=== PATIENT | female | born 1970 | race African-American/Black ===

== ENCOUNTER 2024-12-23 12:58 | Outpatient (AMB) | payer MEDICARE, MEDICAID, SELFPAY ==
--- NOTE | 2024-12-23 13:17 | MHC.OFFVIS ---
Vital Signs 12/23/24 13:22 Height 5 ft 6 in Weight 224 lb BMI 36.2 BP 112/82 Blood Pressure Location Rt brachial Position Sitting Intake Visit Reasons: ENP: Seizures ? TIA Intake Note: Patient referred by divya for seizures? TIA Allergies aspirin Allergy (Mild, Verified 12/23/24 13:19) Gastrointestinal Upset benazepril Allergy (Mild, Verified 12/23/24 13:19) Cough chlorthalidone Allergy (Mild, Verified 12/23/24 13:19) Muscle cramps ibuprofen Allergy (Mild, Verified 12/23/24 13:19) Gastrointestinal Upset naproxen Allergy (Mild, Verified 12/23/24 13:19) Gastrointestinal Upset propofol Allergy (Mild, Verified 12/23/24 13:19) Seizure Medication List - Last Reconciled 12/23/24 by Esmer Knapp MD albuterol sulfate 90 mcg/actuation (Ventolin HFA) 1 inh inhalation QID amlodipine 5 mg PO DAILY aripiprazole (Abilify) 2 mg PO DAILY ascorbate calcium (vitamin C) 1 g PO Q6H betamethasone valerate 0.1% 1 appl topical DAILY bisacodyl (Dulcolax (bisacodyl)) 5 mg PO BEDTIME budesonide (Pulmicort) 0.25 mg inhalation BID cariprazine (Vraylar) 1.5 mg PO DAILY cholecalciferol (vitamin D3) 50 mcg PO DAILY clopidogrel (Plavix) 75 mg PO DAILY cyclobenzaprine 5 mg PO BEDTIME dextromethorphan HBr 30 mg PO Q8H diazepam 2 mg PO TID PRN dicyclomine 10 mg PO QID fluticasone propionate 50 mcg/actuation (Allergy Relief (fluticasone)) 1 spray intranasal BID fluvoxamine 25 mg PO BEDTIME fluvoxamine 100 mg PO BID fremanezumab-vfrm (Ajovy) 675 mg subcut [id number] gabapentin 600 mg PO BID galcanezumab-gnlm (Emgality Pen) mg subcut hydrocortisone 1% (Anti-Itch (hydrocortisone)) 1 appl topical BID hydroxyzine HCl 10 mg PO BEDTIME ketotifen fumarate 0.025%(0.035%) (Allergy Eye (ketotifen)) 1 drp ophthalmic (eye) BID lacosamide 200 mg PO BID levalbuterol HCl 0.63 mg inhalation TID levocetirizine (Xyzal) 5 mg PO DAILY levothyroxine 125 mcg PO DAILY lorazepam (Ativan) 0.5 mg PO BEDTIME PRN lurasidone 20 mg PO DAILY melatonin mg PO montelukast (Singulair) 10 mg PO DAILY naphazoline-pheniramine 0.025-0.3 % (Naphcon-A) 1 drp ophthalmic (eye) BID-QID PRN nystatin 1 appl topical DAILY paroxetine HCl (Paxil) 30 mg PO DAILY polymyxin B sulf-trimethoprim drps ophthalmic (eye) prazosin 2 mg PO BEDTIME rabeprazole (AcipHex) 20 mg PO DAILY revefenacin (Yupelri) 175 mcg inhalation DAILY rhubarb root extract (Estroven Complete Menopause Relief) mg PO roflumilast (Daliresp) 500 mcg PO DAILY simvastatin 20 mg PO DAILY sodium hyaluronate (viscosup) (Euflexxa) 20 mg intra-articular QWEEK sucralfate (Carafate) 5 mL PO QID tiotropium-olodaterol 2.5-2.5 mcg/actuation (Stiolto Respimat) 2 puffs inhalation DAILY topiramate (Topamax) 25 mg PO DAILY topiramate (Topamax) 100 mg PO BID HPI Comments Details: 54y/o female with h/o Polysubstance abuse,seizure ( 2004 CVA ) anxiety , depression bipolar , left 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 In 2022 she was in [place] ER for right facial droop , weakness, tremors , headaches. Her imaging studies ruled out CVA . SHe was seeing Dr. Echeverria and wants to switch to here. she also has sleep apnea but unable to use cPAP and is on Zepbound now. She started having seizures in 2004 - after her CVA. Her last episode was 3-4 months ago- generalized shaking and loses consciousness.she does not remember more history she is on topiramate 100mg bid gabapentin 600mg bid She also has chronic headaches and is on emgality or ajovy .The headaches are frontal, with light noise sensitivty , nausea . she is doing good with emgality. [facility] Medical History (Updated 12/23/24 @ 13:45 by Esmer Knapp MD) Chronic migraine without aura Obstructive sleep apnea of adult Hx of seizure disorder Essential hypertension Hypothyroidism Seizure CVA (cerebral vascular accident) Bipolar disorder Anxiety Depression Asthma COPD (chronic obstructive pulmonary disease) Gastritis Cocaine use disorder History of suicidal ideation Anemia Vitamin D deficiency Torn meniscus Osteoarthritis TIMBO (obstructive sleep apnea) Upper GI bleed Lumbar spondylolysis Cervical spondylosis Fibromyalgia Carpal tunnel syndrome, bilateral Morbid obesity OAB (overactive bladder) Nocturnal hypoxemia Osteoarthritis of both knees Kienbock's disease Mixed hyperlipidemia Surgical History H/O endoscopy H/O arthroscopy of knee H/O hernia repair H/O total hysterectomy with bilateral salpingo-oophorectomy (BSO) Hx of colonoscopy History of carpal tunnel release Family History Mother Stroke Father Benign hypertension Arthritis Social History Alcohol intake: never Patient Tobacco Use Status: Former Tobacco user Physical Exam Vital Signs: Last Vital Signs BP 112/82 12/23/24 13:22 BMI result Body Mass Index 36.2 Const General: cooperative and comfortable Nutritional Appearance: obese Orientation/consciousness: patient oriented x3 Eyes Pupils: Equal, round and reactive pupils present Neuro Other: Mild Left facial droop ANtalgic gait Mild left UE weakness Mallampatti grade 4 General: patient oriented x3, tone normal and moves all extremities Cranial nerves: Yes Facial sensation intact/muscles of mastication intact, Yes Equal, round and reactive pupils present, Yes Bilaterally intact EOM present, Yes Nystagmus not present, Yes Normal facial strength present, Yes Midline tongue present, Yes Symmetric palate elevation present and Yes Ability to bilaterally elevate shoulders present Cognition (Neuro): normal cognition Gait exam (Neuro): Antalgic gait present Motor exam (neuro): 5/5 motor strength present throughout Deep tendon reflexes (DTR's): Right triceps reflex intensity grade: 1+, Left triceps reflex intensity grade: 2+, Rt Biceps (C5, C6): 1+, Left biceps reflex intensity grade: 2+, Right brachioradialis reflex intensity grade: 1+, Left brachioradialis reflex intensity grade: 2+, Right patellar reflex intensity grade: 1+ and Left patellar reflex intensity grade: 2+ Coordination: [id number] test normal Assessment & Plan Assessment & Plan (1) Seizure: Code(s): R56.9 - Unspecified convulsions Category: Medical (2) Obstructive sleep apnea of adult: Code(s): G47.33 - Obstructive sleep apnea (adult) (pediatric) Category: Medical (3) Chronic migraine without aura: Code(s): G43.709 - Chronic migraine without aura, not intractable, without status migrainosus Category: Medical Qualifiers: Status migrainosus presence: without status migrainosus Intractability: not intractable Qualified Code(s): G43.709 - Chronic migraine without aura, not intractable, without status migrainosus Plan Reports from for review. continue AJOVY q monthly Topiramate 100mg bid gabapentin 600mg bid AVOID driving Coding Level of Care Code New Pt Level 4 (69634) Complex EM visit Add On G2211 Diagnoses Seizure R56.9 Obstructive sleep apnea of adult G47.33 Chronic migraine without aura without status migrainosus, not intractable G43.709 Status migrainosus presence: without status migrainosus Intractability: not intractable
[2024-12-23 13:22] VITALS: BP 112/82; BMI 36.2
--- OUTSIDE RECORDS SUMMARY | 2024-12-23 15:23 | XMS_ITS | Encounter Summary ---
Author Organization [facility] Address [address] [address] Care Team Providers Care [facility] Experience Strategy Name Role Phone Unavailable Primary Care Provider Unavailabl e Encounter Details Date Type Department Care Team (Late Contact Info) Description 12/08/2024 Dental Interim Note [facility] [address] [place] [address] Jody Auguste DDS [address] [place] [address] Social History Tobacco Use Types Packs/Day Years Used Date Smoking Tobacco: Former Cigarettes Smokeless Tobacco: Never Social Connections Answer Date Recorded Connectedness 0 06/21/2024 Financial Resource Strain Answer Date R ecorded Financial Resource Strain 0 2021 Stress Answer Date Recorded Stress 0 01/18/2022 Physical Activity Answer Date Recorded Physical Activity 0 01/18/2022 Food Insecurity Answer Date Recorded Food 0 07/01/2024 Transportation Needs Answer Date Record ed Transportation 0 01/18/2022 Housing Stability Answer Date Recorded Housing 0 01/18/2022 Safety and Environment Answer Date Patrice rded Safety 0 01/18/2022 Utilities Answer Date Recorded Utilities 0 01/18/2022 Employment Answer Date Recorded Stress 0 06/21/2024 Comments Unknown Sex and Gender Information Value Date Recorded Sex Assigned at Not on file Legal Sex Female 7:15 AM PST Gender Identity Not on file Sexual Orientation Not on file documented as of this encounter Plan of Treatment Upcoming Encounters Date Type Department Care Team (Late st Contact Info) Description 01/10/2025 1:00 PM EDT Office Visit [facility] [address] [place] [address] Sahil Crews DMD [address] [place] [address] documented as of this encounter Visit Diagnoses Not on filedocumented in this encounter
--- OUTSIDE RECORDS SUMMARY | 2024-12-23 15:23 | XMS_ITS | Clinical Summary ---
Author Organization [facility] [address] [place] [address] [place] [phone] Phone Care Team Providers Care Administrative Assistant Front Desk Name Role Phone Goldie Stark MD Primary Care Provider [phone] Allergies Active Allergy Reactions Criticality Noted Date Comments Aspirin GI intolerance 01/01/2017 Benazepril Cough 08/31/2019 Chlorthalidone Other 08/13/2019 Muscle spasm Ibuprofen GI intolerance 09/13/2021 Naproxen GI intolerance 09/13/2021 Propofol 08/19/2017 seizures Medications multivit-min/iro n/folic acid/K (ADULTS MULTIVITAMIN ORAL) Take 1 tablet by mouth 1 (one) time each day. 06/03/20 23 Active levothyroxine (SYNTHROID, LEVOTHROID) 112 mcg tablet Take 1 tablet (112 mcg total) by mouth 1 (one) time each day. 07/29/20 23 Active cholecalciferol (VITAMIN D-3) 50 mcg (2,000 unit) tablet Take 1 tablet (2,000 Units total) by mouth 1 (one) time each day. 03/31/20 24 Active fluconazole (DIFLUCAN) 150 mg tablet Take 1 tablet (150 mg total) by mouth every 3rd (third) day. 03/24/20 24 Active loratadine (CLARITIN) 10 mg tablet Take 1 tablet (10 mg total) by mouth 1 (one) time each day. 03/15/20 24 Active nystatin (MYCOSTATIN) 100,000 unit/mL suspension Take 1 mL by mouth 4 times daily for 10 days. 09/09/20 Active diclofenac (VOLTAREN) 1 % topical gel Apply 1 Dose topically 1 (one) time each day. 07/28/20 Active levalbuterol (XOPENEX) 0.63 mg/3 mL nebulizer solution Inhale 3 mL by mouth if needed. 03/26/20 Active fluvoxaMINE (LUVOX) 100 mg tablet Take 1 tablet (100 mg total) by mouth at bedtime. 05/20/20 Active hydrocortisone 2.5 % cream Apply 1 Dose topically 1 (one) time each day. 05/04/20 Active gabapentin (NEURONTIN) 300 mg capsule Take 1 capsule (300 mg total) by mouth 2 (two) times a day. 05/27/20 Active bisacodyL (DULCOLAX) 5 mg EC tablet Take 1 tablet (5 mg total) by mouth 1 (one) time each day if needed. 04/13/20 Active fluticasone propionate (FLONASE) 50 mcg/actuation nasal spray Administer 1 spray into affected nostril(s) 1 (one) time each day. 03/25/20 Active docusate sodium (COLACE) 100 mg capsule Take 1 capsule (100 mg total) by mouth 2 (two) times a day if needed for constipation. 03/25/20 Active PARoxetine (PAXIL) 30 mg tablet Take 1 tablet (30 mg total) by mouth 1 (one) time each day in the morning. 03/25/20 Active dicyclomine (BENTYL) 10 mg capsule Take 1 capsule (10 mg total) by mouth 4 (four) times a day if needed (bowel pain). 02/19/20 Active ipratropium-albu teroL (DUONEB) 0.5-2.5 mg/3 mL nebulizer solution Inhale 3 mL by mouth 4 (four) times a day. 02/19/20 Active multivitamin tablet TAKE 1 TABLET BY MOUTH EVERY DAY 90 tablet 1 09/22/20 Active albuterol 2.5 mg /3 mL (0.083 %) nebulizer solutionIndicati ons:Mild intermittent asthma without complication Take 3 mL (2.5 mg total) by nebulization every 6 (six) hours if needed for wheezing. 75 mL 2 01/08/20 25 Active RABEprazole (ACIPHEX) 20 mg EC tablet TAKE 1 TABLET BY MOUTH DAILY 30 tablet 2 10/20/19 25 Active clopidogreL (PLAVIX) 75 mg tablet TAKE 1 TABLET BY MOUTH DAILY 90 tablet 2 10/20/19 25 Active amLODIPine (NORVASC) 5 mg tablet Take 1 tablet (5 mg total) by mouth 1 (one) time each day. 30 tablet 3 10/30/19 25 Active simvastatin (ZOCOR) 20 mg tablet TAKE 1 TABLET BY MOUTH AT BEDTIME 90 tablet 1 11/23/19 25 Active tirzepatide, weight loss, (Zepbound) 2.5 mg/0.5 mL solutionIndicati ons:TIMBO (obstructive sleep apnea) Inject 2.5 mg under the skin every 7 (seven) days. 2 mL 11/25/19 25 Active tirzepatide, weight loss, (Zepbound) 5 mg/0.5 mL solution Inject 5 mg under the skin every 7 (seven) days. 2 mL 3 12/14/19 25 Active tirzepatide, weight loss, (Zepbound) 2.5 mg/0.5 mL solutionIndicati ons:TIMBO (obstructive sleep apnea) Inject 2.5 mg under the skin every 7 (seven) days. 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 Solifenacin 5 mg trialed. As of 02/19/2021 she states she is no longer taking this and her bladder is fine. Carpal tunnel syndrome on both sides 01/17/2019 Overview (07/18/2024): 01/22 EMG: moderate to severe bilateral CTS 11/26: Left carpal tunnel release Fibromyalgia 11/25/2018 Cervical spondylosis 02/05/2018 Lumbar spondylosis 02/05/2018 Vitamin D deficiency 02/19/2017 Gastritis 02/19/2017 Overview (07/18/2024): EGD 04/10/15- loose fundoplication, large HH, Lane erosions TIMBO (obstructive sleep apnea) 02/19/2017 Overview (07/18/2024): [facility] [place] Home Sleep Apnea Test: Date 07/27/2020; Wt 311#; BMI 46; AMA (AHI) 51, Obstructive apneas 48; Mixed apneas 0; Central apneas 0; hypopneas 202; average oxygen saturation 90% (lowest 62% with saturations <88% for 5% or more of study) - Obstructive Sleep Apnea - severe; mostly hypopneas with obstructive apneas; with sleep related hypoventilation by 2019 home sleep apnea test. Cocaine use disorder, moderate, in sustained rem ission 02/19/2017 Overview (07/18/2024): Crack cocaine use 11/02/15 - in patient Psych admit Osteoarthritis, multiple sites 02/19/2017 Overview (07/18/2024): Knees, hands, lumbar spine. Left knee DJD mod-severe on CT 2014 ([facility]) Torn meniscus 02/19/2017 Overview (07/18/2024): l knee. Hemiparesis as late effect o f cerebrovascular accident (CVA) 01/01/2017 Overview (07/18/2024): CVA 2004. Residual L sided weakness. Crack cocaine use, resulting in CVA Essential hypertension 01/01/2017 Hypothyroidism 01/01/2017 IBS (irritable bowel syndrome) 01/01/2017 COPD (chronic obstructive pulmonary disease) Bipolar disorder 01/01/2017 Depression 01/01/2017 Anxiety 01/01/2017 Asthma 01/01/2017 Encounters Date Type Department Care Team Description 12/21/2024 1:45 PM EDT Clinical Support Internal Medicine - [address] [place] [phone] Need for prophylactic vaccination with [id number] (MMR) vaccine (Primary Dx) 12/16/2024 12:59 PM EDT - 12/16/2024 11:59 PM EDT Hospital [facility] [address] [phone] Breast cancer screening by mammogram Discharge Disposition: Home or Self Care 12/10/2024 Telephone Internal Medicine [facility] [address] [phone] Goldie Stark MD [place]: Medication 12/01/2024 8:42 AM EST - 12/01/2024 11:59 PM EST Hospital Encounter [facility] [address] [place] [phone] Nonintractable epilepsy without status epilepticus, unspecified epilepsy type (CMS/HCC) (Primary Dx) Discharge Disposition: Home or Self Care 11/30/2024 8:55 AM EST - 11/30/2024 11:59 PM EST Hospital Encounter [facility] [address] [place] [phone] Discharge Disposition: Home or Self Care 11/29/2024 7:43 AM EST - 11/29/2024 11:59 PM EST Hospital Encounter [facility] [address] [place] [phone] Discharge Disposition: Home or Self Care 11/24/2024 Telephone Internal Medicine [address] [phone] Goldie Stark MD [place]: Medication 11/05/2024 Telephone Internal Medicine [address] [phone] [facility] ([place] [facility] 10/27/2024 Telephone Internal Medicine [address] [phone] Goldie Stark MD Prior Authorization 10/22/2024 Telephone Internal Medicine [address] [phone] Goldie Stark MD [place]: Lab Results 10/19/2024 8:15 AM EST Office Visit Internal Medicine [address] [phone] Goldie Stark MD Prediabetes (Primary Dx); TIMBO (obstructive sleep apnea); Hypothyroidism due to acquired atrophy of thyroid; Mixed hyperlipidemia; Essential hypertension; Screening for colorectal cancer; Breast cancer screening by mammogram 10/19/2024 Telephone Gastroenterology [address] [phone] Mikala Sylvester MD special procedure 10/13/2024 Telephone Internal Medicine [address] [phone] Goldie Stark MD [place] - New Medication 10/12/2024 11:30 AM EST Consult Endocrinology [address] [phone] Chapo Reyna MD Hypothyroidism, unspecified type (Primary Dx) 09/27/2024 Telephone Internal Medicine [address] [phone] Goldie Stark MD from Last 3 Months Immunizations Name Administration Dates Next Due Influenza Quadravalent, MDCK , 0.5ml, preservative free (Flucelvax) 6mo and older 07/10/2021 Influenza trivalent, 0.5mL, preservative free (Fluarix; FluLaval; Fluzone) ages 6mo and older (Afluria) 3 years and older 09/03/2017 Influenza trivalent, with pr eservative (Fluzone; Afluria) 6mo and older 07/01/2020,08/03/2018,08/19/2015,06/29 Influenza, live, intranasal, quadrivalent (FluMist) 2yo to less than 50yo 06/13/2022 MMR, measles mumps and rubel la Live (Priorix; M-M-R II) 12mo and older 12/21/2024 Pfizer SARS-CoV-2 COVID-19, mRNA, LNP-S, preservative free 07/26/2021,01/10/2021,12/20/2020 Pneumococcal polysaccharide 23 valent (Pneumovax 23) 2yo and older 09/24/2017 Tdap Tetanus diptheria acell ular pertussis (Boostrix; Adacel) 7yo and older 09/24/2017 Zoster recombinant (Shingrix ) 19yo and older 07/01/2020,04/26/2020 Surgical History Surgery Date Site/Laterality Comments OTHER SURGICAL HISTORY 05/15/2015 PROCEDURE: HISTORY OTHER; COMMENT: Cara Fundoplication MULTIPLE TOOTH EXTRACTIONS 08/16/2014 PROCEDURE: HISTORICAL DENTAL EXTRACTION OTHER SURGICAL HISTORY 05/15/2015 PROCEDURE: HISTORY OTHER; COMMENT: Hiatus hernia CHOLECYSTECTOMY 1995 PROCEDURE: HISTORICAL CHOLECYSTECTOMY UPPER GASTROINTESTINAL ENDOSCOPY 04/10/15 PROCEDURE: UPPER GI ENDOSCOPY/EXAM; COMMENT: loose fundoplication,Lane erosion COLONOSCOPY 03/12/2013 PROCEDURE: HISTORICAL COLONOSCOPY HYSTERECTOMY 12/08/2017 PROCEDURE: HISTORICAL TOTAL HYSTERECTOMY WITH BSO KNEE ARTHROSCOPY W/ MENISCAL REPAIR -1987 Left PROCEDURE: KS ARTHROSCOPY KNEE W/MENISCUS RPR MEDIAL/LATERAL UPPER GASTROINTESTINAL ENDOSCOPY 12/14/2018 PROCEDURE: UPPER GI ENDOSCOPY/EXAM; COMMENT: Dr. Henriquez; esophageal ulceration CARPAL TUNNEL RELEASE 11/27/2020 Left PROCEDURE: HISTORICAL CARPAL TUNNEL REL; COMMENT: Dr. Tapia - [facility] STEREOTACTIC CORE BIOPSY Right Medical History Medical History Date Comments COPD (chronic obstructive pu lmonary disease) ([facility]) 01/01/2017 DX:COPD (chronic obstructive pulmonary disease) ([facility]) Asthma 01/01/2017 DX:Asthma Depression 01/01/2017 DX:Depression Anxiety 01/01/2017 DX:Anxiety Bipolar disorder 01/01/2017 DX:Bipolar diso rder ([facility]) IBS (irritable bowel syndrome) 01/01/2017 D X:IBS (irritable bowel syndrome) CVA (cerebral vascular accid ent) ([facility]) 01/01/2017 DX:CVA (cerebral vascular ac cident) ([facility]) History of seizure 01/01/2017 DX:History of seizure Left knee pain 01/01/2017 DX:Left knee oh n Osteoarthritis, multiple sites 02/19/2017 D X:Osteoarthritis, multiple sites Vitamin D deficiency 02/19/2017 DX:Vitamin D deficiency History of anemia 02/19/2017 DX:History of anemia; COMMENT: 04/29/09- requiring transfusion-4 units History of suicidal ideation 02/19/2017 DX: History of suicidal ideation; COMMENT: 11/03/15 SI in setting of crack cocaine use. H/O: substance abuse 02/19/2017 DX:H/O: sub stance abuse ([facility]); COMMENT: Crack cocaine use 11/02/15 - in patient Psych admit Essential hypertension 01/01/2017 DX:Essent ial hypertension Gastritis 02/19/2017 DX:Gastritis; CO MMENT: EGD 04/10/15- loose fundoplication, large HH, Lane erosions H/O: upper GI bleed 02/19/2017 DX:H/O: uppe r GI bleed; COMMENT: 03/11/13 [facility] Admit. Transfused 2 units Hemiparesis as late effect o f cerebrovascular accident (CVA) ([facility]) 01/01/2017 DX:Hemiparesis as late effec t of cerebrovascular accident (CVA) ([facility]); COMMENT: CVA 2004. Residual L sided weakness. Crack cocaine use, resulting in CVA Hypothyroidism 01/01/2017 DX:Hypothyroidis m TIMBO (obstructive sleep apnea) 02/19/2017 DX :TIMBO (obstructive sleep apnea); COMMENT: Does not tolerate CPAP Restless legs syndrome (RLS) 02/19/2017 DX: Restless legs syndrome (RLS) Torn meniscus 02/19/2017 DX:Torn meniscus ; COMMENT: R knee. Morbid obesity with body mas s index (BMI) of 45.0 to 49.9 in adult ([facility]) 02/19/2017 DX:Morbid obesity with body mass index (BMI) of 45.0 to 49.9 in adult ([facility]) Carpal tunnel syndrome on both sides 01/17/2019 DX:Carpal tunnel syndrome on both sides; COMMENT: 01/22 EMG: moderate to severe bilateral CTS Family History Medical History Relation Name Comments Arthritis Father Hypertension Father Cardiac problem s Stroke Mother Breast cancer Mother's Sister Breast cancer Other Relation Name Status Comments Aunt mat aunt Alive Father Mother Mother's Sister Alive Other Social History Tobacco Use Types Packs/Day Years Used Date Smoking Tobacco: Former Cigarettes Q uit: 11/02/2015 Smokeless Tobacco: Never Tobacco Cessation:Counseling Given: Not Answered Alcohol Use Standard Drinks/Week Comments No 0 (1 standard drink = 0.6 oz pur e alcohol) Comments No Sex and Gender Information Value Date Recorded Sex Assigned at Female 10/21/2024 1:18 PM EST Legal Sex Female 10:43 PM EST Gender Identity Female 10/21/2024 1:18 PM EST Sexual Orientation Choose not to disclose 2024 1:18 PM EST Obstetrics History Para Term AB IAB SAB Ectopic Multiple Livin g Live Births 3 Last Filed Vital Signs Vital Sign Reading Time Taken Comments Blood Pressure 116/88 10/19/2024 8:23 AM EST Pulse 94 10/19/2024 8:23 AM EST Temperature 36.6 ??C (97.8 ??F) 10/19/2024 8:23 AM ES T Respiratory Rate - - Oxygen Saturation 98% 10/19/2024 8:23 AM EST Inhaled Oxygen Concentration - - Weight 104 kg (230 lb) 12/16/2024 1:11 PM EDT Height 167.6 cm (5' 6 ) 12/16/2024 1:11 PM EDT Body Mass Index 37.12 12/16/2024 1:11 PM EDT Plan of Treatment Upcoming Encounters Date Type Department Care Team (Late st Contact Info) Description 01/12/2025 1:15 PM EDT Office Visit Endocrinology [address] [phone] Chapo Reyna MD [address] [place] [phone] 03/01/2025 2:00 PM EDT Office Visit Internal Medicine - [place] [address] [phone] Goldie Stark MD [address] [phone] Health Maintenance Due Date Last Done Comments Hepatitis A Vaccines (1 of 2 - Risk 2-dose series) 01/02/1987 Hepatitis B Vaccines (1 of 3 - 19+ 3-dose series) 01/02/1987 Cervical Cancer Screening: Pap Smear 01/02/1989 Pneumococcal Vaccine: 50+ Years (2 of 2 - PCV) 09/24/2018 09/24/2017 Pneumococcal Vaccine: Pediatrics (0 to 5 Years) and At-Risk Patients (6 to 64 Years) (2 of 2 - PCV) 09/24/2018 09/24/2017 Colorectal Cancer Screening: Colonoscopy 09/08/2022 Depression Screening 09/08/2022 HIV Screening 09/08/2022 Hepatitis C Screening 09/08/2022 Medicare Annual Wellness Visit 09/08/2022 Social Influencers of Health Screening 09/08/2022 Hypertension/CHF/CAD Annual BMP Blood Test 06/16/2025 06/16/2024, 06/16/2024 Breast Cancer Screening 12/16/2026 12/16/2024, 09/06 DTaP,Tdap,and Td Vaccines (2 - Td or Tdap) 09/24/2027 09/24/2017 Cholesterol Screening (Lipid Panel) 05/06/2028 05/06/2023 Zoster Vaccines Completed 07/01/2020, 04/26/2020 COVID-19 Vaccine Completed 06/03/2024, 05/2022, 01/28/2022, Additional history exists Influenza Vaccine Completed 06/03/2024, , 06/13/2022, Additional history exists MMR Vaccines Aged Out 12/21/2024 No longer eligi ble based on patient's age to complete this topic HIB Vaccines Aged Out No longer eligi ble based on patient's age to complete this topic HPV Vaccines Aged Out No longer eligi ble based on patient's age to complete this topic IPV Vaccines Aged Out No longer eligi ble based on patient's age to complete this topic Meningococcal ACWY Vaccine Aged Out N o longer eligible based on patient's age to complete this topic Meningococcal B Vacine Aged Out No lo nger eligible based on patient's age to complete this topic RSV Immunization Patients Under 20 months Aged Out No longer eligible based on patient's age to complete this topic Varicella Vaccines Aged Out No longer eligible based on patient's age to complete this topic Procedures Procedure Name Priority Date/Time Associated Diagnosis Comments MG MAMMO DIGITAL SCREENING W JAREN BILAT Routine 12/16/2024 1:18 PM EDT Breast cancer screening by mammogram CONTINUOUS EEG Routine 11/30/2024 9:30 AM EST Epilepsy, unspecified, not intractable, without status epilepticus (CMS/HCC) HEMOGLOBIN A1C Routine 10/19/2024 9:03 AM EST Prediabetes THYROXINE FREE Routine 10/19/2024 9:03 AM EST Hypothyroidism, unspecified type THYROID STIMULATING HORMONE Routine 10/19/2024 9:03 AM EST Hypothyroidism, unspecified type HM ANNUAL BMP BLOOD TEST Routine 06/16/2024 LIPID PANEL Routine 05/06/2023 from Last 3 Months or Most Recently Relevant to Health Maintenance Results * MG Mammo Digital Screening w Jaren bilat (12/16/2024 1:18 PM EDT) Anatomical Region Laterality Modality Breast Bilateral Mammography 12/16/2024 4:22 PM EDT Addenda Addendum by Dariusz Maria MD on 12/17/2024 8:53 AM EDT Since the original dictation of this report, a previous outside study performed 09/06/2021 has become available. ??This demonstrates that the density in the upper-outer quadrant of the right breast seen on the prior study has completely resolved. ??A tissue marker is now seen here. ??This indicates that the density seen on the previous study represents postbiopsy hemorrhage which has since resolved. ??No information regarding the results of this biopsy is currently available. -------- ADDENDUM -------- Dictated By: Dariusz Maria Dictated Date: 12/17/2024 08:51 ET Assigned Physician: Dariusz Maria Reviewed and Electronically Signed By: Dariusz Maria Signed Date: 12/17/2024 08:53 ET Workstation ID: [id number] Transcribed By: Self Edit Transcribed Date: 12/17/2024 08:51 ET Impressions 12/16/2024 4:30 PM EDT No mammographic evidence of malignancy. ?? A negative mammogram in the presence of a clinically suspicious palpable abnormality does not preclude the possibility of malignancy or alter the indications for biopsy. ASSESSMENT: ?? BI-RADS 1: NEGATIVE RECOMMENDATION(S): 1: Routine screening mammogram BILATERAL in 1 year. [facility] location[facility] [address], [id number] -------- FINAL REPORT -------- Dictated By: Solitario Wade Dictated Date: 12/16/2024 16:22 ET Assigned Physician: Solitario Wade Reviewed and Electronically Signed By: Solitario Wade Signed Date: 12/16/2024 16:30 ET Workstation ID: [id number] Transcribed By: Self Edit Transcribed Date: 12/16/2024 16:22 ET Narrative 12/16/2024 4:30 PM EDT EXAM: ??SCREENING MAMMOGRAPHY, BILATERAL HISTORY: ??SCREENING. ??Maternal aunt with history of breast cancer. COMPARISON: ??None available TECHNIQUE: Synthesized CC and MLO projections of each breast. ??Tomosynthesis of each breast in the CC and MLO projections. ADDITIONAL IMAGING: None Computer-aided detection was employed with the iCAD ??ProFound AI 3-D. TISSUE DENSITY: The breasts are almost entirely fatty. (BI-RADS ??Category A) FINDINGS: RIGHT BREAST: No suspicious mass. No suspicious calcification. No distortion. ?? No additional suspicious right breast findings LEFT BREAST: No suspicious mass. No suspicious calcification. No distortion. ?? No additional suspicious left breast findings Procedure Note Solitario Wade MD / Dariusz Maria MD - 12/16/2024 EXAM: SCREENING MAMMOGRAPHY, BILATERAL HISTORY: SCREENING. Maternal aunt with history of breast cancer. COMPARISON: None available TECHNIQUE: Synthesized CC and MLO projections of each breast.Tomosynthesis of each breast in the CC and MLO projections. ADDITIONAL IMAGING: None Computer-aided detection was employed with the iCAD ProFound AI 3-D. TISSUE DENSITY: The breasts are almost entirely fatty. (BI-RADS CategoryA) FINDINGS: RIGHT BREAST: No suspicious mass. No suspicious calcification. No distortion. Noadditional suspicious right breast findings LEFT BREAST: No suspicious mass. No suspicious calcification. No distortion. Noadditional suspicious left breast findings IMPRESSION: No mammographic evidence of malignancy. A negative mammogram in the presence of a clinically suspicious palpableabnormality does not preclude the possibility of malignancy or alter theindications for biopsy. ASSESSMENT: BI-RADS 1: NEGATIVE RECOMMENDATION(S): 1: Routine screening mammogram BILATERAL in 1 year. [facility] location[facility] at [address], [address] -------- FINAL REPORT -------- Dictated By: Solitario Wade Dictated Date: 12/16/2024 16:22 ET Assigned Physician: Solitario Wade Reviewed and Electronically Signed By: Solitario Wade Signed Date: 12/16/2024 16:30 ET Workstation ID: [id number] Transcribed By: Self Edit Transcribed Date: 12/16/2024 16:22 ET Goldie Stark MD IMG BI PROCEDURES Edited Resul t - Final * Continuous EEG (11/30/2024 9:30 AM EST) Narrative Shine Echeverria MD - 12/02/2024 11:36 AM EST This is a 16 channel 48-hour ambulatory EEG. ??Patient kept a diary and did not report any symptoms during any of these days. ??Each day of EEG was separately reviewed and included wakefulness and sleep. ??During wakefulness background EEG rhythm was symmetric alpha posteriorly and lower amplitude faster anteriorly. ??Patient transition into different stages of sleep during both days. ??During both days sharply controlled waveforms or sharp waves were noted at times in the left temporal area and other than right temporal. ??Phase reversal was noted at T3 and T4 on separate occasions. ??There was also few seconds of generalized polyspike discharges that was difficult to figure out as it might have been an artifact. ??Cardiac lead did not reveal any significant abnormality. Impression: Abnormal EEG suggestive of bitemporal irritability with patient not reporting any symptoms. us Shine Echeverria MD NEUROLOGY ORDERABLES Final Result * Thyroid stimulating hormone (10/19/2024 9:03 AM EST) TSH 1.76 0.40 - 4.00 mcIU/mL LAB CHEMISTRY METHOD 10/19/2024 10:39 AM EST [facility] Blood Venous blood specimen / Unknown Venipuncture / Unknown 10/19/2024 9:03 AM EST 10/19/2024 9:03 AM EST Chapo Reyna MD LAB BLOOD ORDERABLES Final Resul t Performing Organization Address City/[facility]/ZIP Co de Phone Number [facility] [address] [place] [address], [place] [phone] * Thyroxine free (10/19/2024 9:03 AM EST) Free T4 1.13 0.70 - 1.80 ng/dL LAB CHEMISTRY METHOD 10/19/2024 10:39 AM EST [facility] Blood Venous blood specimen / Unknown Venipuncture / Unknown 10/19/2024 9:03 AM EST 10/19/2024 9:03 AM EST Chapo Reyna MD LAB BLOOD ORDERABLES Final Resul t Performing Organization Address City/[facility]/ZIP Co de Phone Number [facility] [address] [place] [address], [place] [phone] * Hemoglobin A1c (10/19/2024 9:03 AM EST) Hemoglobin A1C 5.9 <6.5 % LAB CHEMISTRY METHOD 10/19/2024 9:23 PM EST [facility] Mean Bld Glu Estim. 123 mg/dL LAB CHEMISTRY METHOD 10/19/2024 9:23 PM EST [facility] Blood Venous blood specimen / Unknown Venipuncture / Unknown 10/19/2024 9:03 AM EST 10/19/2024 9:03 AM EST Goldie Stark MD LAB BLOOD ORDERABLES Final Res ult [facility] [address] [place] [address], * Annual BMP Blood Test (06/16/2024) Annual BMP Blood Test abstracted Historical Provider HEALTH MAINTENANCE Final Result * Lipid panel (05/06/2023) LDL/HDL Ratio 2 0 - 4 Triglycerides 101 0 - 150 mg/dL Cholesterol 157 0 - 200 mg/dL HDL 72 >=40 mg/dL LDL Cholesterol 65 0 - 100 mg/dL Blood Venous blood specimen / Unknown Historical Provider LAB BLOOD ORDERABLES Nohemy l Result from Last 3 Months or Most Recently Relevant to Health Maintenance Insurance MEDICARE MEDICAID - [place] Care Teams Administrative Assistant Front Desk Relationship Specialty Start Date End Date Goldie Stark MD [address] [place] [phone] PCP - General Internal Medicine 10/12/24
--- OUTSIDE RECORDS SUMMARY | 2024-12-23 15:23 | XMS_ITS | Encounter Summary ---
Author Organization [facility] Address [address] [place] [address] Care Team Providers Care X Ray Equipment Servicer Name Role Phone Goldie Stark MD Primary Care Provider [phone] Reason for Visit * Imaging (Routine) - Closed Specialty Diagnoses / Procedures Referred By Contac t Referred To Contact Radiology Diagnoses Breast cancer screening by mammogram Procedures MG Mammo Digital Screening w Jaren bilat MG Mammo Digital Screening bilat Goldie Stark MD [address] [place] [phone] Phone: tel: fax: [address] [phone] Phone: tel: Referral ID Status Reason Start Date Expiration Date Visits Re quested Visits Authorized [id number] Closed 10/19/2024 10/19/2025 1 1 Encounter Details Date Type Department Care Team (Latest Contact Info) Description 12/16/2024 12:59 PM EDT - 12/16/2024 11:59 PM EDT Hospital [facility] [address] [phone] Breast cancer screening by mammogram Discharge Disposition: Home or Self Care Social History Tobacco Use Types Packs/Day Years Used Date Smoking Tobacco: Former Cigarettes Q uit: 11/02/2015 Smokeless Tobacco: Never Alcohol Use Standard Drinks/Week Comments No 0 (1 standard drink = 0.6 oz pur e alcohol) Comments No Sex and Gender Information Value Date Recorded Sex Assigned at Female 10/21/2024 1:18 PM EST Legal Sex Female 10:43 PM EST Gender Identity Female 10/21/2024 1:18 PM EST Sexual Orientation Choose not to disclose 2024 1:18 PM EST documented as of this encounter Last Filed Vital Signs Vital Sign Reading Time Taken Comments Blood Pressure - - Pulse - - Temperature - - Respiratory Rate - - Oxygen Saturation - - Inhaled Oxygen Concentration - - Weight 104 kg (230 lb) 12/16/2024 1:11 PM EDT Height 167.6 cm (5' 6 ) 12/16/2024 1:11 PM EDT Body Mass Index 37.12 12/16/2024 1:11 PM EDT documented in this encounter Medications at Time of Discharge albuterol 2.5 mg /3 mL (0.083 %) nebulizer solutionIndicatio ns:Mild intermittent asthma without complication Take 3 mL (2.5 mg total) by nebulization every 6 (six) hours if needed for wheezing. 75 mL 2 10/13/2024 amLODIPine (NORVASC) 5 mg tablet Take 1 tablet (5 mg total) by mouth 1 (one) time each day. 30 tablet 3 10/30/2024 bisacodyL (DULCOLAX) 5 mg EC tablet Take 1 tablet (5 mg total) by mouth 1 (one) time each day if needed. 04/13/2023 cholecalciferol (VITAMIN D-3) 50 mcg (2,000 unit) tablet Take 1 tablet (2,000 Units total) by mouth 1 (one) time each day. 03/31/2024 clopidogreL (PLAVIX) 75 mg tablet TAKE 1 TABLET BY MOUTH DAILY 90 tablet 2 10/20/2024 diclofenac (VOLTAREN) 1 % topical gel Apply 1 Dose topically 1 (one) time each day. 07/28/2023 dicyclomine (BENTYL) 10 mg capsule Take 1 capsule (10 mg total) by mouth 4 (four) times a day if needed (bowel pain). 02/18/2023 docusate sodium (COLACE) 100 mg capsule Take 1 capsule (100 mg total) by mouth 2 (two) times a day if needed for constipation. 03/25/2023 fluconazole (DIFLUCAN) 150 mg tablet Take 1 tablet (150 mg total) by mouth every 3rd (third) day. 03/24/2024 fluticasone propionate (FLONASE) 50 mcg/actuation nasal spray Administer 1 spray into affected nostril(s) 1 (one) time each day. 03/25/2023 fluvoxaMINE (LUVOX) 100 mg tablet Take 1 tablet (100 mg total) by mouth at bedtime. 05/20/2023 gabapentin (NEURONTIN) 300 mg capsule Take 1 capsule (300 mg total) by mouth 2 (two) times a day. 05/27/2023 hydrocortisone 2.5 % cream Apply 1 Dose topically 1 (one) time each day. 05/04/2023 ipratropium-albut Felisha (DUONEB) 0.5-2.5 mg/3 mL nebulizer solution Inhale 3 mL by mouth 4 (four) times a day. 02/18/2023 levalbuterol (XOPENEX) 0.63 mg/3 mL nebulizer solution Inhale 3 mL by mouth if needed. 03/26/2023 levothyroxine (SYNTHROID, LEVOTHROID) 112 mcg tablet Take 1 tablet (112 mcg total) by mouth 1 (one) time each day. 07/29/2023 loratadine (CLARITIN) 10 mg tablet Take 1 tablet (10 mg total) by mouth 1 (one) time each day. 03/15/2024 multivit-min/iron /folic acid/K (ADULTS MULTIVITAMIN ORAL) Take 1 tablet by mouth 1 (one) time each day. 06/03/2023 multivitamin tablet TAKE 1 TABLET BY MOUTH EVERY DAY 90 tablet 1 09/22/2024 nystatin (MYCOSTATIN) 100,000 unit/mL suspension Take 1 mL by mouth 4 times daily for 10 days. 09/09/2023 PARoxetine (PAXIL) 30 mg tablet Take 1 tablet (30 mg total) by mouth 1 (one) time each day in the morning. 03/25/2023 RABEprazole (ACIPHEX) 20 mg EC tablet TAKE 1 TABLET BY MOUTH DAILY 30 tablet 2 10/20/2024 simvastatin (ZOCOR) 20 mg tablet TAKE 1 TABLET BY MOUTH AT BEDTIME 90 tablet 1 11/23/2024 tirzepatide, weight loss, (Zepbound) 2.5 mg/0.5 mL solutionIndicatio ns:TIMBO (obstructive sleep apnea) Inject 2.5 mg under the skin every 7 (seven) days. 2 mL 11/25/2024 tirzepatide, weight loss, (Zepbound) 5 mg/0.5 mL solution Inject 5 mg under the skin every 7 (seven) days. 2 mL 3 12/13/2024 documented as of this encounter Discharge Disposition Disposition Code Departure Means Destination Home or Self Care documented in this encounter Plan of Treatment Upcoming Encounters Date Type Department Care Team (Late st Contact Info) Description 01/12/2025 1:15 PM EDT Office Visit Endocrinology [facility] [address] [place] [address] Chapo Reyna MD [address] [place] [address] 03/01/2025 2:00 PM EDT Office Visit Internal Medicine - [place] [address] [phone] Goldie Stark MD 175 [facility] [address] [place] [phone] documented as of this encounter Procedures Procedure Name Priority Date/Time Associated Diagnosis Comments MG MAMMO DIGITAL SCREENING W JAREN BILAT Routine 12/16/2024 1:18 PM EDT Breast cancer screening by mammogram documented in this encounter Results * MG Mammo Digital Screening w [...] Signed Date: 12/17/2024 08:53 ET Workstation ID: [id number] Transcribed By: Self Edit Transcribed Date: 12/17/2024 [...] year. 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 TISSUE DENSITY: The breasts are [...] year. [facility]amm[facility] location: [facility] [address] [place], [address] -------- FINAL REPORT -------- Dictated By: Solitario Wade Dictated Date: 12/16/2024 16:22 ET Assigned Physician: Solitario Wade Reviewed and Electronically Signed By: Solitario Wade Signed Date: 12/16/2024 16:30 ET Workstation ID: [id number] Transcribed By: Self Edit Transcribed Date: 12/16/2024 16:22 ET us Goldie Stark MD IMG BI PROCEDURES Edited Resul t - Final documented in this encounter Visit Diagnoses Diagnosis Breast cancer screening by mammogram documented in this encounter Care Teams X Ray Equipment Servicer Relationship Specialty Start Date End Date Goldie Stark MD [address] [place] [address] [address] [place] [address] PCP - General Internal Medicine 10/12/24 documented as of this encounter
--- OUTSIDE RECORDS SUMMARY | 2024-12-23 15:23 | XMS_ITS | Clinical Summary ---
Author Organization [facility] Address [place] [address] [place] [address] Care Team Providers Care Entertainment Lawyer Name Role Phone Unavailable Primary Care Provider Unavailabl e Source Comments PLEASE NOTE, if this patient is a minor, it may be UNLAWFUL to discuss sensitive information that is contained in these records (such as FAMILY PLANNING, MENTAL HEALTH or SUBSTANCE ABUSE) with the minor patient's parent or other person without the patient's specific authorization.[facility] Medications triamcinolone (KENALOG) 0.1 % pasteIndication s:Traumatic ulcer of oral mucosa Apply over mouth ulcer after meals and before bedtime 5 g 1 11/13/2023 Active Active Problems No known active problems Encounters Date Type Department Care Team Description 12/08/2024 Dental Interim Note [facility] [address] [place] [address] Jody Auguste DDS from Last 3 Months Social History Tobacco Use Types Packs/Day Years Used Date Smoking Tobacco: Former Cigarettes Smokeless Tobacco: Never Tobacco Cessation:Counseling Given: Not Answered Social Connections Answer Date Recorded Connectedness 0 [...] on file Sexual Orientation Not on file Last Filed Vital Signs Vital Sign Reading Time Taken Comments Blood Pressure 131/86 07/12/2024 3:34 PM EDT Pulse 77 07/12/2024 3:34 PM EDT Temperature - - Respiratory Rate - - Oxygen Saturation - - Inhaled Oxygen Concentration - - Weight - - Height - - Body Mass Index - - Plan of Treatment Upcoming Encounters Date Type Department Care Team (Late st Contact Info) Description 01/10/2025 1:00 PM EDT Office Visit [facility] [address] [place] [phone] Sahil Crews DMD [address] [place] [address] Health Maintenance Due Date Last Done Comments HPV Screening 1968 Hepatitis C Screening 1968 Pap + HPV 1968 HIV Screening 01/02/1983 Imm-Hepatitis B (1 of 3 - 19 + 3-dose series) 01/02/1987 Cervical Cancer Screening 01/02/1989 Pap Smear 01/02/1989 Breast Cancer Screening (Mammogram) 2008 CT Colonography 01/02/2013 Colonoscopy 01/02/2013 Colorectal Cancer Screening 01/02/2013 FIT/gFOBT 01/02/2013 Fecal DNA 01/02/2013 Flexible Sigmoidoscopy 01/02/2013 Imm-Zoster, Recombinant (1 of 2) 01/02/2018 [id number] ( season) 2024 06/12/2022, 01/28/2022, 01/27/2022, Additional history exists Imm-Influenza (#1) 2024 06/13/2022, 0 06/12/2022, 07/10/2021, Additional history exists Alcohol and Drug Screen 10/06/2024 Depression Annual Screen 10/06/2024 Tobacco Screening 01/04/2025 01/05/2024 Hypertension Screening (#1) 07/12/2025 Diabetes Screening 05/06/2026 05/06/2023 Imm-DTaP/Tdap/Td (2 - Td or Tdap) 09/24/2027 017 Lipid Screening 05/06/2028 05/06/2023 Cervical Ablation/Cold-Knife Conization Discontinued Cervical Cryotherapy Discontinued Colposcopy Discontinued Endometrial Biopsy Discontinued Excision/Leep Discontinued HPV Genotyping Discontinued Vaginal Pap Discontinued Vulvoscopy Discontinued Insurance ID MEDICAID DENTAL
--- OUTSIDE RECORDS SUMMARY | 2024-12-23 15:23 | XMS_ITS | Encounter Summary ---
Author Organization [facility] Address [address] [place] [address] Care Team Providers Care Employment Evaluator/Case Manager Name Role Phone Goldie Stark MD Primary Care Provider [phone] Reason for Visit * Reason Onset Date Comments Prior Authorization 10/27/2024 Encounter Details Date Type Department Care Team ([facility] Contact Info) Description 10/27/2024 Telephone Internal Medicine - [place] [address] [facility] [address] [place] [phone] Goldie Stark MD [address] [facility] [address] [place] [phone] Prior Authorization Social History Tobacco Use Types Packs/Day Years Used Date Smoking Tobacco: Former Cigarettes Q uit: 11/02/2015 Smokeless Tobacco: Never Alcohol Use Standard Drinks/Week Comments No 0 (1 standard drink = 0.6 oz pur e alcohol) Comments Unknown Sex and Gender Information Value Date Recorded Sex Assigned at Female 10/21/2024 1:18 PM EST Legal Sex Female 10:43 PM EST Gender Identity Female 10/21/2024 1:18 PM EST Sexual Orientation Choose not to disclose 2024 1:18 PM EST documented as of this encounter Ordered Prescriptions Prescription Sig Dispense Quantity Refills Last Filled Start Date End Date tirzepatide, weight loss, (Zepbound) 5 mg/0.5 mL solution Inject 5 mg under the skin every 7 (seven) days. 2 mL 3 12/13/2024 documented in this encounter Progress Notes * Goldie Stark MD - 12/13/2024 12:48 PM EDTAddended by: GOLDIE STARK on: 12/13/2024 12:48 PM Modules accepted: Orders * Goldie Stark MD - 12/13/2024 12:47 PM EDT Sent higher dose * Michael Lauren MA - 12/13/2024 9:16 AM EDT Please advise pt requesting dose increase * Janet Oliva - 12/10/2024 3:04 PM EST Pt received this medication, but is asking if the dosage can be increased. [phone] * Janet Oliva - 12/10/2024 11:23 AM EST Pt is requesting a cb regarding this medication, please advise [phone] * Xiomy Barrett - 11/23/2024 10:44 AM EST PA has been approved * Bhargavi Muñoz - 11/12/2024 11:35 AM EST Pharmacy called about PA for zepbound and was informed of message below. * Luma Singh - 11/11/2024 1:12 PM EST Printed out P.A. form it requires provider signature. Placed in providers folder up front. Please fax back to [phone] once signed. * Xiomy Barrett - 11/09/2024 1:46 PM EST Patient called to check status of PA for Zepbound, She states the Pharmacy said nothing was sent toher insurance. * Cate Higuera - 11/08/2024 2:36 PM EST Oh called again this time she requests That our office contact shannan [phone] Unsure why no prior auth has been Obtained * Cate Higuera - 11/08/2024 2:22 PM EST Patient irate that she cannot have her zepbound - -HOW LONG DOES IT TAKE Please contact patient and attempt to explain prior auth procedures * Cuca Vuong MA - 11/05/2024 8:13 AM EST Form faxed today Thank you * Michael Lauren MA - 11/04/2024 4:00 PM EST Fax number is [phone] * Cuca Vuong MA - 11/04/2024 3:18 PM EST Keycode is for medicare, medicare does not cover weight loss drugs. Pt also has [employer] . Prior authorization for the zepbound was completed today on [employer] form This requires a provider signature. Please provide a fax number for Goldie Stark. Thank you Please reply back to [facility] Pool (Prior Auth Pool) Cuca Ramos [facility] Prior Authorization Ext [id number] * Cate Higuera - 11/02/2024 10:01 AM EST Patient still waiting for prior auth for zepbound Please check and contact patient. Checking on delay of prior auth * Luma Singh - 10/27/2024 9:53 AM EST Prior Authorization for Medication-do not complete and send this encounter unless you have the fax from the pharmacy. Is this a Cover My Meds request: Yes - [place] Code: [id number] Name of Medication tirzepatide, weight loss, (Zepbound) Dose of Medication 2.5 mg/0.5 mL What is the RX # from the faxed refill? - How does patient take this med? Inject 2.5 mg under the skin every 7 (seven) days What Pharmacy did the fax come from: [facility] fax #: [phone] [employer] Party Information from fax: What Prescription Plan does the patient have? - BIN/PCN if applicable: - Cardholder ID: - Person Code: - Relationship Code: - Help desk phone: - documented in this encounter Plan of Treatment Upcoming Encounters Date Type Department Care Team (Late st Contact Info) Description 01/12/2025 1:15 PM EDT Office Visit Endocrinology [address] [phone] Chapo Reyna MD [address] [place] [phone] 03/01/2025 2:00 PM EDT Office Visit Internal Medicine - [place] 175 [facility] [address] [place] [phone] Goldie Stark MD 175 [facility] [address] [place] [phone] documented as of this encounter Visit Diagnoses Not on filedocumented in this encounter Care Teams Employment Evaluator/Case Manager Relationship Specialty Start Date End Date Goldie Stark MD 175 [facility] [address] [place] [phone] PCP - General Internal Medicine 10/12/24 documented as of this encounter
--- OUTSIDE RECORDS SUMMARY | 2024-12-23 15:23 | XMS_ITS | Encounter Summary ---
Author Organization [facility] Address [address] [place] [address] Care Team Providers Care Job Estimator Name Role Phone Goldie Stark MD Primary Care Provider [phone] Reason for Visit * Reason Onset Date Comments Mi: Medication 12/10/2024 Encounter Details Date Type Department Care Team (Late st Contact Info) Description 12/10/2024 Telephone Internal Medicine - [place] 175 [facility] [address] [place] [phone] Goldie Stark MD 175 [facility] [address] [place] [phone] Annanti: Medication Social History Tobacco Use Types Packs/Day Years [...] PM EST documented as of this encounter Progress Notes * Lenny Ware MA - 12/13/2024 10:08 AM EDT Please advise * Cate Higuera - 12/13/2024 9:40 AM EDT Patient called again today Please respond if increase will be done For Zepbound - to help control her Appetite. * Michael Lauren MA - 12/13/2024 9:12 AM EDT Please advise * Bhargavi Muñoz - 12/10/2024 4:24 PM EST Patient called and requested a call back because she would like a dose increase for zepbound because it is not controlling her appetite. Please advise. Cb# [phone] documented in this encounter Plan of Treatment Upcoming Encounters Date Type Department Care Team (Late st Contact Info) Description 01/12/2025 1:15 PM EDT Office Visit Endocrinology - [address] [phone] Chapo Reyna MD [address] [place] [address] 03/01/2025 2:00 PM EDT Office Visit Internal Medicine - [place] [address] [phone] Goldie Stark MD [address] [phone] documented as of this encounter Visit Diagnoses Not on filedocumented in this encounter Care Teams Job Estimator Relationship Specialty Start Date End Date Goldie tSark MD [address] [phone] PCP - General Internal Medicine 10/12/24 documented as of this encounter
--- OUTSIDE RECORDS SUMMARY | 2024-12-23 15:23 | XMS_ITS ---
Author Organization [facility] Care Team Providers Care Cream Separator Operator Name Role Phone Rosa Maria Jordan Unavailable Unavailable Lisa Collins Unavailable Unavailable Kasia Davis Unavailable Unavailable Richard Yee Unavailable Unavailable Karnya Zimmer Unavailable Unavailable Allergies and adverse reactions Code CodeSystem Substance Reaction Severity StartDate Concern Status 8782 RXNORM Propofol Unknown 12/13/[address] NSAIDs Unknown 12/13/2022 active 1191 RXNORM Aspirin Unknown 12/13/2022 active Care Team Name Role Address Phone Organization Mehreen Collins PCP [address] [facility] [address], [place], [address], [facility] (Office): [facility] 12/14/2022 - 12/27/2022 Rosa Maria Jordan Attending Physician [address] [facility] [address], [place], [address], [facility] (Office): [facility] 12/14/2022 - 12/27/2022 Kasia Davis Attending Physician [address] [facility] [address], [place], [address], [facility] (Office): [facility] 12/14/2022 - 12/27/2022 Richard Yee Attending Physician [address] [facility], [place], [address], [place] (Office): [facility] 12/14/2022 - 12/27/2022 Karyna Zimmer Attending Physician [address] [place], [address], [place] (Office): [facility] 12/14/2022 - 12/27/2022 Immunizations Immunization Status Vaccine Details Vaccine Code CodeSystem Date Notes Influenza completed Influenza, split virus, trivalent, injectable, contains preservative 141 CVX created date: 12/13/2022 administer ed date: 06/13/2022 SARS-COV-2 (COVID-19) completed SARS-COV-2 (COVID-19) vaccine, mRNA, spike protein, LNP, preservative free, 30 mcg/0.3mL dose, kalpesh-sucrose formulation Mfg: [employer] Step 2 of Multi-step with next step required 217 CVX created date: 12/13/2022 administer ed date: 01/10/2021 SARS-COV-2 (COVID-19) completed SARS-COV-2 (COVID-19) vaccine, mRNA, spike protein, LNP, preservative free, 30 mcg/0.3mL dose, kalpesh-sucrose formulation Mfg: [employer] Step 1 of Multi-step with next step required 217 CVX created date: 12/13/2022 administer ed date: 12/20/2020 SARS-COV-2 (COVID-19 BOOSTER) completed SARS-COV-2 (COVID-19) vaccine, mRNA, spike protein, LNP, preservative free, 30 mcg/0.3mL dose, kalpesh-sucrose formulation Mfg: [employer] 217 CVX created date: 12/13/2022 administer ed date: 06/13/2022 Bivalent Booster SARS-COV-2 (COVID-19 BOOSTER) completed SARS-COV-2 (COVID-19) vaccine, mRNA, spike protein, LNP, preservative free, 30 mcg/0.3mL dose, kalpesh-sucrose formulation Mfg: [employer] 217 CVX created date: 12/13/2022 administer ed date: 01/28/2022 Booster #2 SARS-COV-2 (COVID-19 BOOSTER) completed SARS-COV-2 (COVID-19) vaccine, mRNA, spike protein, LNP, preservative free, 30 mcg/0.3mL dose, kalpesh-sucrose formulation Mfg: [employer] 217 CVX created date: 12/13/2022 administer ed date: 07/26/2021 Booster #1 Mental Status Section Date Assessment Total Score Description 12/27/2022 BIMS 15 cognitively int act CAM 0 No delirium ind icated PHQ-9 10 moderate depres rodri 12/19/2022 BIMS 15 cognitively int act CAM 0 No delirium ind icated PHQ-9 10 moderate depres rodri Problems Problem # Description Date of onset Resolved Date Code CodeSystem Concern Status 1 ALLERGIC RHINITIS, UNSPECIFIED 12/26/[address] active 2 MIGRAINE, UNSPECIFIED, NOT INTRACTABLE, WITHOUT STATUS MIGRAINOSUS 12/26/[address] active 3 AFTERCARE FOLLOWING JOINT REPLACEMENT SURGERY 12/13/[address] active 4 BINGE EATING DISORDER 12/13/[address] active 5 BIPOLAR DISORDER, UNSPECIFIED 12/13/[address] active 6 CHRONIC OBSTRUCTIVE PULMONARY DISEASE, UNSPECIFIED 12/13/[address] active 7 COCAINE USE, UNSPECIFIED, IN REMISSION 12/13/[address] active 8 DIFFICULTY IN WALKING, NOT ELSEWHERE CLASSIFIED 12/13/[address] active 9 EMPHYSEMA, UNSPECIFIED 12/13/[address] active 10 ESOPHAGEAL OBSTRUCTION 12/13/[address] active 11 ESSENTIAL (PRIMARY) HYPERTENSION 12/13/[address] active 12 FIBROMYALGIA 12/13/[address] acti ve 13 GASTRO-ESOPHAGEAL REFLUX DISEASE WITHOUT ESOPHAGITIS 12/13/[address] active 14 HYPERLIPIDEMIA, UNSPECIFIED 12/13/[address] active 15 HYPOTHYROIDISM, UNSPECIFIED 12/13/[address] active 16 IRRITABLE BOWEL SYNDROME, UNSPECIFIED 12/13/[address] active 17 MAJOR DEPRESSIVE DISORDER, RECURRENT, UNSPECIFIED 12/13/[address] active 18 MORBID (SEVERE) OBESITY DUE TO EXCESS CALORIES 12/13/[address] active 19 OBSTRUCTIVE SLEEP APNEA (ADULT) (PEDIATRIC) 12/13/[address] active 20 OTHER LACK OF COORDINATION 12/13/[address] active 21 OTHER SEIZURES 12/13/[address] act anatoly 22 OVERACTIVE BLADDER 12/13/[address] T active 23 PANIC DISORDER [EPISODIC PAROXYSMAL ANXIETY] 12/13/[address] active 24 PERSONAL HISTORY OF TRANSIENT ISCHEMIC ATTACK (TIA), AND CEREBRAL INFARCTION WITHOUT RESIDUAL DEFICITS 12/13/[address] active 25 POST-TRAUMATIC STRESS DISORDER, CHRONIC 12/13/[address] active 26 PRESENCE OF LEFT ARTIFICIAL KNEE JOINT 12/13/[address] active 27 RESTLESS LEGS SYNDROME 12/13/[address] active 28 UNILATERAL PRIMARY OSTEOARTHRITIS, LEFT KNEE 12/13/[address] active 29 UNSTEADINESS ON FEET 12/13/[address] active Reason for Referral No Reasons for Referral Entered Social History Social History Observation Description Start Date End Date Code Code System Current Smoking Status Tobacco smoking consumption unknown 199462864 SNOMED CT Sex Assigned At Female 1970 84320-5 [facility] Vital Signs Code Code System Vitals Name Values and Units Timing Information 95778-4 [facility] Pain Level Value=4.0 12/27/2022 9279-1 INC Respiratory Rate Value=18.0 Units=/m in 12/27/2022 8462-4 LOINC Blood Pressure-Diastolic Value=70 Un its=mmHg 12/27/2022 8480-6 LOINC Blood Pressure-Systolic Epnce=595 Un its=mmHg 12/27/2022 8310-5 LOINC Body Temperature Value=97.3 Units=?? F 12/27/2022 8867-4 LOINC Heart rate Value=78.0 Units=/min 86145-2 LOINC O2 % BldC Oximetry Value=96.0 Units= % 12/27/2022 11100-9 LOINC Weight Yimwc=484.9 Units=Lbs 8302-2 LOINC Height Value=66.0 Units=Inches 12/19/2022
--- OUTSIDE RECORDS SUMMARY | 2024-12-23 15:23 | XMS_ITS | Encounter Summary ---
Author Organization [facility] Address [address] [place] [address] Care Team Providers Care Glass Laminating Operator Name Role Phone Goldie Stark MD Primary Care Provider [phone] Encounter Details Date Type Department Care Team (Latest Contact Info) Description 12/21/2024 1:45 PM EDT Clinical Support Internal Medicine - [address] [place] [address] Need for prophylactic vaccination with lchakoe-ixgij-igfecr a (MMR) vaccine (Primary Dx) Social History Tobacco Use Types Packs/Day Years [...] PM EST documented as of this encounter Plan of Treatment Upcoming Encounters Date Type Department Care Team (Late st Contact Info) Description 01/12/2025 1:15 PM EDT Office Visit Endocrinology [address] [phone] Chapo Reyna MD [address] [place] [phone] 03/01/2025 2:00 PM EDT Office Visit Internal Medicine - [place] [address] [facility] [address] [place] [phone] Goldie Stark MD [address] [phone] documented as of this encounter Visit Diagnoses Diagnosis Need for prophylactic vaccination with iyrujvz-goyee-qvchyin (MMR) vaccine- Primary documented in this encounter Orders Immunization/Injection Count Last Ordered Date First Ordered Date MMR, MEASLES MUMPS AND RUBEL LA LIVE (PRIORIX; M-M-R II) 12 MO AND OLDER 1 12/21/2024 documented in this encounter Care Teams Glass Laminating Operator Relationship Specialty Start Date End Date Goldie Stark MD [address] [place] [phone] PCP - General Internal Medicine 10/12/24 documented as of this encounter
--- OUTSIDE RECORDS SUMMARY | 2024-12-23 15:23 | XMS_ITS | Encounter Summary ---
Author Organization [facility] Address [address] [place] [address] Care Team Providers Care Automation Driver Name Role Phone Goldie Stark MD Primary Care Provider [phone] Reason for Visit * Neurology (Routine) - Closed Specialty Diagnoses / Procedures Referred By Contac t Referred To Contact Neurology Diagnoses Epilepsy, unspecified, not intractable, without status epilepticus Procedures Continuous EEG Shine Echeverria MD [address] [place] [address] [place] [address] Phone: tel: fax: [facility] [address] [place] [phone] Phone: tel: Referral ID Status Reason Start Date Expiration Date Visits Re quested Visits Authorized [id number] Closed 09/06/2024 09/06/2025 3 3 Encounter Details Date Type Department Care Team (Latest Contact Info) Description 12/01/2024 8:42 AM EST - 12/01/2024 11:59 PM EST Hospital Encounter [facility] [address] [place] [phone] Nonintractable epilepsy without status epilepticus, unspecified epilepsy type (CMS/HCC) (Primary Dx) Discharge Disposition: Home or Self Care Social [...] PM EST documented as of this encounter Medications at Time of Discharge [...] 1:15 PM EDT Office Visit Endocrinology - [place] [address] [place] [phone] Chapo Reyna MD [address] [place] [address] 03/01/2025 2:00 PM EDT Office Visit Internal Medicine - [place] [address] [phone] Goldie Stark MD [address] [phone] Pending Results Name Type Priority Associated Diagnoses Date /Time Continuous EEG Neurology Routine Epilepsy, unspecified, not intractable, without status epilepticus (CMS/HCC) 12/01/2024 8:44 AM EST documented as of this encounter Visit Diagnoses Diagnosis Nonintractable epilepsy without status epilepticus, unspecified epilepsy type (CMS/HCC)- Primary documented in this encounter Care Teams Automation Driver Relationship Specialty Start Date End Date Goldie Stark MD [address] [phone] PCP - General Internal Medicine 10/12/24 documented as of this encounter
--- OUTSIDE RECORDS SUMMARY | 2024-12-23 15:24 | XMS_ITS | Encounter Summary ---
Author Organization [facility] Address [address] [place] [address] Care Team Providers Care Automotive Buyer Name Role Phone Goldie Stark MD Primary Care Provider [phone] Reason for Visit * Neurology (Routine) - Closed Specialty Diagnoses / Procedures Referred By Contac t Referred To Contact Neurology Diagnoses Epilepsy, unspecified, not intractable, without status epilepticus Procedures Continuous EEG Shine Echeverria MD [address] [place] [address] [place] [address] Phone: tel: fax: [facility] [address] [place] [phone] Phone: tel: Referral ID Status Reason Start Date Expiration Date Visits Re quested Visits Authorized [id number] Closed 09/06/2024 09/06/2025 3 3 Encounter Details Date Type Department Care Team (Latest Contact Info) Description 11/29/2024 7:43 AM EST - 11/29/2024 11:59 PM EST Hospital Encounter [facility] [address] [place] [phone] Discharge Disposition: Home or Self Care Social [...] 1:15 PM EDT Office Visit Endocrinology - [place] [address] [place] [address] Chapo Reyna MD [address] [place] [address] 03/01/2025 2:00 PM EDT Office Visit Internal Medicine - [place] [address] [phone] Goldie Stark MD [address] [phone] Pending Results Name Type Priority Associated Diagnoses Date /Time Continuous EEG Neurology Routine Epilepsy, unspecified, not intractable, without status epilepticus ([facility]) 11/29/2024 8:52 AM EST documented as of this encounter Visit Diagnoses Not on filedocumented in this encounter Care Teams Automotive Buyer Relationship Specialty Start Date End Date Goldie Stark MD 175 [facility] [place] [phone] PCP - General Internal Medicine 10/12/24 documented as of this encounter
--- OUTSIDE RECORDS SUMMARY | 2024-12-23 15:24 | XMS_ITS | Encounter Summary ---
Author Organization [facility] Address [address] [place] [address] Care Team Providers Care Pelletizer Operator Name Role Phone Goldie Stark MD Primary Care Provider [phone] Reason for Visit * Reason Onset Date Comments Annanti: Medication 11/24/2024 Encounter Details Date Type Department Care Team ([facility] Contact Info) Description 11/24/2024 Telephone Internal Medicine - [place] [address] [facility] [address] [place] [phone] Goldie Stark MD [address] [facility] [address] [place] [phone] Annanti: Medication Social History Tobacco Use Types [...] Date End Date tirzepatide, weight loss, (Zepbound) 2.5 mg/0.5 mL solutionIndications :TIMBO (obstructive sleep apnea) Inject 2.5 mg under the skin every 7 (seven) days. 2 mL 11/25/2024 documented in this encounter Progress Notes * Bhargavi Muñoz - 11/24/2024 1:34 PM EST Patient called and requested stool softener please advise when in the pharmacy. Cb# [phone] documented in this encounter Plan of Treatment Upcoming Encounters Date Type Department Care Team (Late st Contact Info) Description 01/12/2025 1:15 PM EDT Office Visit Endocrinology [facility] [address] [place] [phone] Chapo Reyna MD [address] [place] [phone] 03/01/2025 2:00 PM EDT Office Visit Internal Medicine - [place] [address] [phone] Goldie Stark MD [address] [phone] documented as of this encounter Visit Diagnoses Diagnosis TIMBO (obstructive sleep apnea) Obstructive sleep apnea (adult) (pediatric) documented in this encounter Discontinued Medications Medication Sig Discontinue Reason Start Date End Da te tirzepatide, weight loss, (Zepbound) 2.5 mg/0.5 mL solutionIndications:TIMBO (obstructive sleep apnea) Inject 2.5 mg under the skin every 7 (seven) days. Reorder 10/18/2024 11/24/2024 documented as of this encounter Care Teams Pelletizer Operator Relationship Specialty Start Date End Date Goldie Stark MD [address] [phone] PCP - General Internal Medicine 10/12/24 documented as of this encounter
--- OUTSIDE RECORDS SUMMARY | 2024-12-23 15:24 | XMS_ITS | Encounter Summary ---
Author Organization [facility] Address [address] [place] [address] Care Team Providers Care Medicare Specialist Name Role Phone Goldie Stark MD Primary Care Provider [phone] Reason for Visit * Neurology (Routine) - Closed Specialty Diagnoses / Procedures Referred By Contac t Referred To Contact Neurology Diagnoses Epilepsy, unspecified, not intractable, without status epilepticus Procedures Continuous EEG Shine Echeverria MD [address] [place] [address] [place] [address] Phone: tel: fax: [facility] [address] [place] [phone] Phone: tel: Referral ID Status Reason Start Date Expiration Date Visits Re quested Visits Authorized [id number] Closed 09/06/2024 09/06/2025 3 3 Encounter Details Date Type Department Care Team (Latest Contact Info) Description 11/30/2024 8:55 AM EST - 11/30/2024 11:59 PM EST Hospital Encounter [facility] [address] [place] [phone] Discharge Disposition: Home or Self Care [...] 01/12/2025 1:15 PM EDT Office Visit Endocrinology [facility] [address] [place] [address] Chapo Reyna MD [address] [place] [phone] 03/01/2025 2:00 PM EDT Office Visit Internal Medicine - [place] [address] [facility] [address] [place] [phone] Goldie Stark MD 175 [facility] [address] [place] [address] documented as of this encounter Procedures Procedure Name Priority Date/Time Associated Diagnosis Comments CONTINUOUS EEG Routine 11/30/2024 9:30 AM EST Epilepsy, unspecified, not intractable, without status epilepticus ([facility]) documented in this encounter Results * Continuous EEG (11/30/2024 9:30 AM EST) [...] Shine Echeverria MD NEUROLOGY ORDERABLES Final Result documented in this encounter Visit Diagnoses Not on filedocumented in this encounter Care Teams Medicare Specialist Relationship Specialty Start Date End Date Goldie Stark MD [address] [place] [phone] PCP - General Internal Medicine 10/12/24 documented as of this encounter
== END 2024-12-23 13:48 | disposition home or self-care (01) ==
LOC: HO.HSMS 12:58
PROVIDERS: PCP Internal Medicine; Visit Provider Psychiatry & Neurology Neurology
DX: R56.9 Unspecified convulsions (principal); G47.33 Obstructive sleep apnea (adult) (pediatric); G43.709 Chronic migraine without aura, not intractable, without status migrainosus
CPT/HCPCS: 99204; G2211

== ENCOUNTER → 2024-12-23 12:58 | Outpatient (BNVA) | payer MEDICARE, MEDICAID, SELFPAY | PROVIDERS: PCP Internal Medicine; Visit Provider Psychiatry & Neurology Neurology | DX: R56.9 Unspecified convulsions (principal); G47.33 Obstructive sleep apnea (adult) (pediatric); G43.709 Chronic migraine without aura, not intractable, without status migrainosus | CPT/HCPCS: 99202 ==

== ENCOUNTER 2025-06-29 13:55 | Outpatient (AMB) | payer MEDICARE, MEDICAID, SELFPAY ==
[2025-06-29 14:01] VITALS: BP 108/76; PULSE 88; O2SAT 98; BMI 33.2
--- NOTE | 2025-06-29 14:01 | MHC.OFFVIS ---
Vital Signs 06/29/25 14:01 Height 5 ft 6 in Weight 205 lb 8 oz BMI 33.2 BP 108/76 Blood Pressure Location Rt brachial Position Sitting Pulse 88 Pulse Source Pulse Oximeter Pulse Oximetry (%) 98 Oxygen Delivery Method Room Air Intake Visit Reasons: 6 mnts f/u Intake Note: Follow up Chronic migraine without aura, not intractable, without status migrainosus, Seizure, TIMBO Traffic Control Signaler Required: No Accompanied by: Self / Same As Patient Allergies aspirin Allergy (Mild, Verified 06/29/25 14:02) Gastrointestinal Upset benazepril Allergy (Mild, Verified 06/29/25 14:02) Cough chlorthalidone Allergy (Mild, Verified 06/29/25 14:02) Muscle cramps ibuprofen Allergy (Mild, Verified 06/29/25 14:02) Gastrointestinal Upset naproxen Allergy (Mild, Verified 06/29/25 14:02) Gastrointestinal Upset propofol Allergy (Mild, Verified 06/29/25 14:02) Seizure Medication List - Last Reconciled 06/29/25 by Esmer Knapp MD albuterol sulfate 90 mcg/actuation (Ventolin HFA) 1 inh inhalation QID amlodipine 5 mg PO DAILY aripiprazole (Abilify) 2 mg PO DAILY ascorbate calcium (vitamin C) 1 g PO Q6H betamethasone valerate 0.1% 1 appl topical DAILY bisacodyl (Dulcolax (bisacodyl)) 5 mg PO BEDTIME budesonide (Pulmicort) 0.25 mg inhalation BID cariprazine (Vraylar) 1.5 mg PO DAILY cholecalciferol (vitamin D3) 50 mcg PO DAILY clopidogrel (Plavix) 75 mg PO DAILY cyclobenzaprine 5 mg PO BEDTIME dextromethorphan HBr 30 mg PO Q8H diazepam 2 mg PO TID PRN dicyclomine 10 mg PO QID fluticasone propionate 50 mcg/actuation (Allergy Relief (fluticasone)) 1 spray intranasal BID fluvoxamine 25 mg PO BEDTIME fluvoxamine 100 mg PO BID fremanezumab-vfrm (Ajovy) 675 mg (4.5 mL) subcut [id number] gabapentin 600 mg PO BID 90 days MDD 1200mg galcanezumab-gnlm (Emgality Pen) mg subcut hydrocortisone 1% (Anti-Itch (hydrocortisone)) 1 appl topical BID hydroxyzine HCl 10 mg PO BEDTIME ketotifen fumarate 0.025%(0.035%) (Allergy Eye (ketotifen)) 1 drp ophthalmic (eye) BID lacosamide 200 mg PO BID levalbuterol HCl 0.63 mg inhalation TID levocetirizine (Xyzal) 5 mg PO DAILY levothyroxine 125 mcg PO DAILY lorazepam (Ativan) 0.5 mg PO BEDTIME PRN MDD 1.0mg lurasidone 20 mg PO DAILY melatonin mg PO montelukast (Singulair) 10 mg PO DAILY naphazoline-pheniramine 0.025-0.3 % (Naphcon-A) 1 drp ophthalmic (eye) BID-QID PRN nystatin 1 appl topical DAILY paroxetine HCl (Paxil) 30 mg PO DAILY polymyxin B sulf-trimethoprim drps ophthalmic (eye) prazosin 2 mg PO BEDTIME rabeprazole (AcipHex) 20 mg PO DAILY revefenacin (Yupelri) 175 mcg inhalation DAILY rhubarb root extract (Estroven Complete Menopause Relief) mg PO roflumilast (Daliresp) 500 mcg PO DAILY simvastatin 20 mg PO DAILY sodium hyaluronate (viscosup) (Euflexxa) 20 mg intra-articular QWEEK sucralfate (Carafate) 5 mL PO QID tiotropium-olodaterol 2.5-2.5 mcg/actuation (Stiolto Respimat) 2 puffs inhalation DAILY topiramate (Topamax) 25 mg PO DAILY topiramate (Topamax) 100 mg PO BID 3 months HPI Comments Details: 55y/o female comes for follow up for possible seizure . No passing out but had some episodes of shaking .she was consious. No severe headaches or migraines. No new weakness or numbness.she does not drive . 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 In 2022 she was in [place] ER for right facial droop , weakness, tremors , headaches. Her imaging studies ruled out CVA . SHe was seeing Dr. Echeverria and wants to switch to here. she also has sleep apnea but unable to use cPAP and is on Zepbound now. She started having seizures in 2004 - after her CVA. Her last episode was 3-4 months ago- generalized shaking and loses consciousness.she does not remember more history she is on topiramate 100mg bid gabapentin 600mg bid She also has chronic headaches and is on emgality or ajovy .The headaches are frontal, with light noise sensitivty , nausea . she is doing good with emgality. [facility] Medical History Chronic migraine without aura Obstructive sleep apnea of adult Hx of seizure disorder Essential hypertension Hypothyroidism Seizure CVA (cerebral vascular accident) Bipolar disorder Anxiety Depression Asthma COPD (chronic obstructive pulmonary disease) Gastritis Cocaine use disorder History of suicidal ideation Anemia Vitamin D deficiency Torn meniscus Osteoarthritis TIMBO (obstructive sleep apnea) Upper GI bleed Lumbar spondylolysis Cervical spondylosis Fibromyalgia Carpal tunnel syndrome, bilateral Morbid obesity OAB (overactive bladder) Nocturnal hypoxemia Osteoarthritis of both knees Kienbock's disease Mixed hyperlipidemia Surgical History H/O endoscopy H/O arthroscopy of knee H/O hernia repair H/O total hysterectomy with bilateral salpingo-oophorectomy (BSO) Hx of colonoscopy History of carpal tunnel release Family History Mother Stroke Father Benign hypertension Arthritis Social History Alcohol intake: never Patient Tobacco Use Status: Former Tobacco user Physical Exam Vital Signs: Last Vital Signs Pulse 88 06/29/25 14:01 BP 108/76 06/29/25 14:01 Pulse Ox 98 06/29/25 14:01 Oxygen Delivery Method Room Air 06/29/25 14:01 BMI result Body Mass Index 33.2 Const General: cooperative and comfortable Nutritional Appearance: obese Orientation/consciousness: patient oriented x3 Eyes Pupils: Equal, round and reactive pupils present Neuro Other: Mild Left facial droop ANtalgic gait Mild left UE weakness Mallampatti grade 4 General: patient oriented x3, tone normal and moves all extremities Cranial nerves: Yes Facial sensation intact/muscles of mastication intact, Yes Equal, round and reactive pupils present, Yes Bilaterally intact EOM present, Yes Nystagmus not present, Yes Normal facial strength present, Yes Midline tongue present, Yes Symmetric palate elevation present and Yes Ability to bilaterally elevate shoulders present Cognition (Neuro): normal cognition Gait exam (Neuro): Antalgic gait present Motor exam (neuro): 5/5 motor strength present throughout Coordination: [id number] test normal Assessment & Plan Assessment & Plan (1) Seizure: Code(s): R56.9 - Unspecified convulsions Category: Medical (2) Chronic migraine without aura: Code(s): G43.709 - Chronic migraine without aura, not intractable, without status migrainosus Category: Medical Qualifiers: Status migrainosus presence: without status migrainosus Intractability: not intractable Qualified Code(s): G43.709 - Chronic migraine without aura, not intractable, without status migrainosus (3) Obstructive sleep apnea of adult: Code(s): G47.33 - Obstructive sleep apnea (adult) (pediatric) Category: Medical Plan Discussed about restarting CPAP - unable to tolerate CPAP - she sees Dr. Glynn at [facility] continue AJOVY q monthly Topiramate 100mg bid gabapentin 600mg bid AVOID driving Coding Level of Care Code Est Pt Level 4 (90141) Complex EM visit Add On G2211 Diagnoses Seizure R56.9 Chronic migraine without aura without status migrainosus, not intractable G43.709 Status migrainosus presence: without status migrainosus Intractability: not intractable Obstructive sleep apnea of adult G47.33
--- OUTSIDE RECORDS SUMMARY | 2025-06-29 16:26 | XMS_ITS ---
Author Name [facility] Organization Unknown Care Team Organization Name Specialty Phone Email Start Date End Da te [facility] Termed, PROVIDER Primary Care 08/13/202205/06
--- OUTSIDE RECORDS SUMMARY | 2025-06-29 16:26 | XMS_ITS | Clinical Summary ---
Author Organization [facility] Address [address] [place] [address] Care Team Providers Care Pr Internship Name Role Phone Unavailable Primary Care Provider [...] Encounters Date Type Department Care Team Description 06/20/2025 1:00 PM EDT Office Visit [address] [place] [id number] Sahil Crews DMD from Last 3 Months Social History Tobacco [...] Sign Reading Time Taken Comments Blood Pressure 144/90 06/20/2025 3:14 PM EDT Pulse 70 06/20/2025 3:14 PM EDT Temperature - - Respiratory Rate - - Oxygen Saturation - - Inhaled Oxygen Concentration - - Weight - - Height - - Body Mass Index - - Plan of Treatment Upcoming Encounters Date Type Department Care Team (Late st Contact Info) Description 07/04/2025 1:00 PM EDT Office Visit [facility] [address] [place] [phone] [employer], [address] [place] [address] Health Maintenance Due Date Last Done Comments Anxiety Screening 1970 HPV Screening 1968 Hepatitis C Screening 1968 Pap + HPV 1968 HIV Screening 01/02/1983 Imm-Hepatitis B (1 of 3 - 19 + 3-dose series) 01/02/1987 Cervical Cancer Screening 01/02/1989 Pap Smear 01/02/1989 CT Colonography 01/02/2013 Colonoscopy 01/02/2013 Colorectal Cancer Screening 01/02/2013 FIT/gFOBT 01/02/2013 Fecal DNA 01/02/2013 Flexible Sigmoidoscopy 01/02/2013 Imm-Pneumococcal 50+ (2 of 2 - PCV) 09/24/2018 09/24/2017 Alcohol and Drug Screen 10/06/2024 Depression Annual Screen 10/06/2024 [id number] ( season) 2025 06/12/2022, 01/28/2022, 07/26/2021, Additional history exists Imm-Influenza (#1) 2025 06/13/2022, 1 , 07/01/2020, Additional history exists Diabetes Screening 03/01/2026 03/01/2025, 0 10/19/2024, 10/19/2024, Additional history exists Hypertension Screening (#1) 06/20/2026 Tobacco Screening 06/20/2026 06/20/2025 Breast Cancer Screening (Mammogram) 12/16/2026 12/16/2024 Imm-DTaP/Tdap/Td (2 - Td or Tdap) 09/24/2027 017 Lipid Screening 05/06/2028 05/06/2023 Imm-Zoster, Recombinant Completed 07/01/2020, 04/26 Cervical Ablation/Cold-Knife Conization Discontinued Cervical Cryotherapy Discontinued Colposcopy Discontinued Endometrial Biopsy Discontinued Excision/Leep Discontinued HPV Genotyping Discontinued Vaginal Pap Discontinued Vulvoscopy Discontinued Insurance [place]
--- OUTSIDE RECORDS SUMMARY | 2025-06-29 16:26 | XMS_ITS | Clinical Summary ---
Author Organization [facility] [address] [place] [address] [place] [phone] Phone Care Team Providers Care Scientific Affairs Manager Name Role Phone Goldie Stark MD Primary Care Provider [phone] Allergies Active Allergy Reactions Criticality Noted Date Comments Aspirin GI intolerance 01/01/2017 Benazepril Cough 08/31/2019 Chlorthalidone Other 08/13/2019 Muscle spasm Ibuprofen GI intolerance 09/13/2021 Naproxen GI intolerance 09/13/2021 Propofol 08/19/2017 seizures Medications multivit-min/iron /folic acid/K (ADULTS MULTIVITAMIN ORAL) Take 1 tablet by mouth 1 (one) time each day. 023 Active fluconazole (DIFLUCAN) 150 mg tablet Take 1 tablet (150 mg total) by mouth every 3rd (third) day. 024 Active loratadine (CLARITIN) 10 mg tablet Take 1 tablet (10 mg total) by mouth 1 (one) time each day. 024 Active nystatin (MYCOSTATIN) 100,000 unit/mL suspension Take 1 mL by mouth 4 times daily for 10 days. 023 Active diclofenac (VOLTAREN) 1 % topical gel Apply 1 Dose topically 1 (one) time each day. 023 Active levalbuterol (XOPENEX) 0.63 mg/3 mL nebulizer solution Inhale 3 mL by mouth if needed. 023 Active fluvoxaMINE (LUVOX) 100 mg tablet Take 1 tablet (100 mg total) by mouth at bedtime. 023 Active hydrocortisone 2.5 % cream Apply 1 Dose topically 1 (one) time each day. 023 Active gabapentin (NEURONTIN) 300 mg capsule Take 1 capsule (300 mg total) by mouth 2 (two) times a day. 023 Active bisacodyL (DULCOLAX) 5 mg EC tablet Take 1 tablet (5 mg total) by mouth 1 (one) time each day if needed. 023 Active fluticasone propionate (FLONASE) 50 mcg/actuation nasal spray Administer 1 spray into affected nostril(s) 1 (one) time each day. 023 Active docusate sodium (COLACE) 100 mg capsule Take 1 capsule (100 mg total) by mouth 2 (two) times a day if needed for constipation. 023 Active PARoxetine (PAXIL) 30 mg tablet Take 1 tablet (30 mg total) by mouth 1 (one) time each day in the morning. 023 Active dicyclomine (BENTYL) 10 mg capsule Take 1 capsule (10 mg total) by mouth 4 (four) times a day if needed (bowel pain). 023 Active ipratropium-albut Felisha (DUONEB) 0.5-2.5 mg/3 mL nebulizer solution Inhale 3 mL by mouth 4 (four) times a day. 023 Active multivitamin tablet TAKE 1 TABLET BY MOUTH EVERY DAY 90 tablet 1 024 Active albuterol 2.5 mg /3 mL (0.083 %) nebulizer solutionIndicatio ns:Mild intermittent asthma without complication Take 3 mL (2.5 mg total) by nebulization every 6 (six) hours if needed for wheezing. 75 mL 2 025 Active clopidogreL (PLAVIX) 75 mg tablet TAKE 1 TABLET BY MOUTH DAILY 90 tablet 2 025 Active ondansetron ODT (ZOFRAN-ODT) 4 mg disintegrating tablet Dissolve 1 tablet (4 mg total) on top of the tongue every 8 (eight) hours if needed for nausea or vomiting. 30 tablet 3 025 Active incontinence pad, liner, disp padIndications:Ir ritable bowel syndrome, unspecified type,OAB (overactive bladder) 1 each 1 (one) time each day. 100 each 11 025 Active tirzepatide, weight loss, (ZEPBOUND) 7.5 mg/0.5 mL injection Inject 0.5 mL (7.5 mg total) under the skin every 7 (seven) days. 2 mL 3 025 Active hydrocortisone (ANUSOL-HC) 2.5 % rectal cream Insert into the rectum 4 (four) times a day if needed for hemorrhoids (rectal discomfort). 30 g 5 025 2025 Active multivitamin (Daily-Martin, with folic acid,) tablet TAKE 1 TABLET BY MOUTH EVERY DAY 90 tablet 1 025 Active RABEprazole (ACIPHEX) 20 mg EC tablet TAKE 1 TABLET BY MOUTH DAILY 30 tablet 2 025 Active diclofenac (VOLTAREN) 1 % topical gel Apply 2 g topically 2 (two) times a day. 60 g 1 025 Active simvastatin (ZOCOR) 20 mg tablet TAKE 1 TABLET BY MOUTH AT BEDTIME 90 tablet 1 025 Active tirzepatide, weight loss, (ZEPBOUND) 10 mg/0.5 mL injection Inject 0.5 mL (10 mg total) under the skin every 7 (seven) days. D/c 7.5 mg 2 mL 3 025 Active amLODIPine (NORVASC) 5 mg tablet TAKE 1 TABLET(5 MG) BY MOUTH 1 TIME EACH DAY 30 tablet 3 025 Active cholecalciferol (VITAMIN D-3) 50 mcg (2,000 unit) tablet TAKE 1 TABLET BY MOUTH DAILY 42 tablet 1 025 Active levothyroxine (SYNTHROID, LEVOTHROID) 112 mcg tablet Take 1 tablet (112 mcg total) by mouth 1 (one) time each day. 30 tablet 1 025 Active levothyroxine (SYNTHROID, LEVOTHROID) 112 mcg tablet Take 1 tablet (112 mcg total) by mouth 1 (one) time each day. 023 2024 Discontinued(R eorder) amLODIPine (NORVASC) 5 mg tablet Take 1 tablet (5 mg total) by mouth 1 (one) time each day. 30 tablet 3 025 2024 Discontinued cholecalciferol (VITAMIN D-3) 50 mcg (2,000 unit) tablet TAKE 1 TABLET BY MOUTH DAILY 42 tablet 1 025 2024 Discontinued tirzepatide, weight loss, (ZEPBOUND) 10 mg/0.5 mL injection Inject 0.5 mL (10 mg total) under the skin every 7 (seven) days. D/c 7.5 mg 2 mL 3 025 2024 Discontinued(R eorder) Active Problems Problem Noted Date Diagnosed Date [...] TIMBO (obstructive sleep apnea) 02/19/2017 Overview (07/18/2024): [facility] Home Sleep Apnea Test: Date 07/27/2020; Wt 311#; BMI 46; AMA (AHI) 51, Obstructive apneas 48; Mixed apneas 0; Central apneas 0; hypopneas 202; average oxygen saturation 90% (lowest 62% with saturations <88% for 5% or more of study) - Obstructive Sleep Apnea - severe; mostly hypopneas with obstructive apneas; with sleep related hypoventilation by 2019 home sleep apnea test. Cocaine use disorder, modera te, in sustained remission ([facility] V24, [facility] V28) 02/19/2017 Overview (07/18/2024): Crack cocaine use 11/02/15 - in patient Psych admit Osteoarthritis, multiple sites 02/19/2017 Overview (07/18/2024): Knees, hands, lumbar spine. Left knee DJD mod-severe on CT 2014 ([facility]) Torn meniscus 02/19/2017 Overview (07/18/2024): l knee. Hemiparesis as late effect o f cerebrovascular accident (CVA) ([facility] V24, [facility] V28) 01/01/2017 Overview (07/18/2024): CVA 2004. Residual L sided weakness. Crack cocaine use, resulting in CVA Essential hypertension 01/01/2017 Hypothyroidism 01/01/2017 IBS (irritable bowel syndrome) 01/01/2017 COPD (chronic obstructive pu lmonary disease) ([facility] V24, [facility] V28) 01/01/2017 Bipolar disorder ([facility] V24, [facility] V28) 12/05 Depression 01/01/2017 Anxiety 01/01/2017 Asthma 01/01/2017 Encounters Date Type Department Care Team Description 06/01/2025 Telephone Internal Medicine [facility] [address] [phone] Goldie Stark MD 05/19/2025 Telephone Internal Medicine [facility] 175 [facility] [address] [place] [phone] Goldie Stark MD 05/17/2025 12:00 PM EDT Office Visit Internal Medicine [facility] 175 [facility] [address] [place] [phone] Goldie Stark MD Left wrist pain (Primary Dx); Hypothyroidism due to acquired atrophy of thyroid; Chronic obstructive pulmonary disease, unspecified COPD type ([facility] V24, [facility] V28); TIMBO (obstructive sleep apnea); Mixed hyperlipidemia; Essential hypertension from Last 3 Months Immunizations Name Administration [...] (Priorix; M-M-R II) 12mo and older 12/21/2024 [employer]ox SARS-CoV-2 COVID-19, mRNA, LNP-S, preservative free 07/26/2021,01/10/2021,12/20/2020 [...] ARTHROSCOPY W/ MENISCAL REPAIR -1987 Left PROCEDURE: CO ARTHROSCOPY KNEE W/MENISCUS RPR MEDIAL/LATERAL UPPER GASTROINTESTINAL ENDOSCOPY 12/14/2018 PROCEDURE: UPPER GI ENDOSCOPY/EXAM; COMMENT: Dr. Henriquez; esophageal ulceration CARPAL TUNNEL RELEASE 11/27/2020 Left PROCEDURE: HISTORICAL CARPAL TUNNEL REL; COMMENT: Dr. Tapia - [facility] STEREOTACTIC CORE BIOPSY Right Medical History Medical History Date Comments COPD (chronic obstructive pu lmonary disease) ([facility] V24, [facility] V28) 01/01/2017 DX:COPD (chronic o bstructive pulmonary disease) ([facility]) Asthma 01/01/2017 DX:Asthma Depression 01/01/2017 DX:Depression Anxiety 01/01/2017 DX:Anxiety Bipolar disorder ([facility] V2 4, [facility] V28) 01/01/2017 DX:Bipolar disorder ([facility]) IBS (irritable bowel syndrome) 01/01/2017 D X:IBS (irritable bowel syndrome) CVA (cerebral vascular accid ent) ([facility] V24, [facility] V28) 01/01/2017 DX:CVA (cerebral vascular a ccident) ([facility]) History of seizure 01/01/2017 DX:History of seizure [...] of crack cocaine use. H/O: substance abuse ([facility] V24, [facility] V28) 02/19/2017 DX:H/O: substance abuse ([facility] ); COMMENT: Crack cocaine use 11/02/15 - in patient Psych admit Essential hypertension 01/01/2017 DX:Essent ial hypertension Gastritis 02/19/2017 DX:Gastritis; CO MMENT: EGD 04/10/15- loose fundoplication, large HH, Lane erosions H/O: upper GI bleed 02/19/2017 DX:H/O: uppe r GI bleed; COMMENT: 03/11/13 [facility] Admit. Transfused 2 units Hemiparesis as late effect o f cerebrovascular accident (CVA) ([facility] V24, [facility] V28) 01/01/2017 DX:Hemiparesis as late effe ct of cerebrovascular accident (CVA) ([facility]); COMMENT: CVA 2005. Residual L sided weakness. Crack cocaine use, resulting in CVA Hypothyroidism 01/01/2017 DX:Hypothyroidis m TIMBO (obstructive sleep apnea) 02/19/2017 DX :TIMBO (obstructive sleep apnea); COMMENT: Does not tolerate CPAP Restless legs syndrome (RLS) 02/19/2017 DX: Restless legs syndrome (RLS) Torn meniscus 02/19/2017 DX:Torn meniscus ; COMMENT: R knee. Morbid obesity with body mas s index (BMI) of 45.0 to 49.9 in adult ([facility] V24, [facility] V28) 02/19/2017 DX:Morbid obesity with body mass index (BMI) of 45.0 to 49.9 in adult ([facility]) Carpal tunnel syndrome on both sides 01/17/2019 [...] Sign Reading Time Taken Comments Blood Pressure 124/72 05/17/2025 12:13 PM EDT Pulse 76 05/17/2025 12:13 PM EDT Temperature 36.7 C (98.1 F) 05/17/2025 12:13 PM EDT Respiratory Rate 20 05/17/2025 12:13 PM EDT Oxygen Saturation 98% 05/17/2025 12:13 PM EDT Inhaled Oxygen Concentration - - Weight 91.2 kg (201 lb) 05/17/2025 12:13 PM EDT Height 167.6 cm (5' 6 ) 05/17/2025 12:13 PM EDT Body Mass Index 32.44 05/17/2025 12:13 PM EDT Plan of Treatment Upcoming Encounters Date Type Department Care Team (Late st Contact Info) Description 08/25/2025 12:45 PM EST Office Visit Internal Medicine [facility] [place] [address] [facility] [address] [place] [phone] Goldie Stark MD [address] [place] [address] 01/18/2026 1:00 PM EDT Office Visit Endocrinology [facility] [address] [place] [phone] Chapo Reyna MD [address] [place] [address] Health Maintenance Due Date Last Done Comments Hepatitis B Vaccines (1 of 3 - 19+ 3-dose series) 01/02/1987 Cervical Cancer Screening: Pap Smear 01/02/1989 Pneumococcal Vaccine: 50+ Years (2 of 2 - PCV) 09/24/2018 09/24/2017 Colorectal Cancer Screening: Colonoscopy 09/08/2022 HIV Screening 09/08/2022 Hepatitis C Screening 09/08/2022 Medicare Annual Wellness Visit 09/08/2022 Social Influencers of Health Screening 09/08/2022 Depression Screening 10/06/2024 Influenza Vaccine (#1) 2025 4, 05/06/2023, 06/13/2022, Additional history exists Hypertension/CHF/CAD Annual BMP Blood Test 03/01/2026 03/01/2025, 06/16/2024, 06/16/2024 Breast Cancer Screening 12/17/2026 12/18/19, 12/16/2024, 09/06/2021 DTaP,Tdap,and Td Vaccines (2 - Td or Tdap) 09/24/2027 09/24/2017 Cholesterol Screening (Lipid Panel) 05/06/2028 05/06/2023 RSV Immunization Adult Patients (1 - 1-dose 75+ series) 01/02/2043 Zoster Vaccines Completed 07/01/2020, 04/26/2020 COVID-19 Vaccine Completed 06/03/2024, 05/2022, 01/28/2022, Additional history exists MMR Vaccines Aged Out 12/21/2024 No longer eligi ble based on patient's age to complete this topic HIB Vaccines Aged Out No longer eligi ble based on patient's age to complete this topic HPV Vaccines Aged Out No longer eligi ble based on patient's age to complete this topic Hepatitis A Vaccines Aged Out No long er eligible based on patient's age to complete this topic IPV Vaccines Aged Out No longer eligi ble based on patient's age to complete this topic Meningococcal ACWY Vaccine Aged Out N o longer eligible based on patient's age to complete this topic Meningococcal B Vaccine Aged Out No l onger eligible based on patient's age to complete this topic RSV Immunization Patients Under 20 months Aged Out No longer eligible based on patient's age to complete this topic Varicella Vaccines Aged Out No longer eligible based on patient's age to complete this topic Procedures Procedure Name Priority Date/Time Associated Diagnosis Comments COMPREHENSIVE METABOLIC PANEL Routine 03/01/2025 12:22 PM EDT Essential hypertension Mixed hyperlipidemia Fibromyalgia EXTERNAL MAMMOGRAM REPORT 12/17/2024 LIPID PANEL Routine 05/06/2023 from Last 3 Months or Most Recently Relevant to Health Maintenance Results * (ABNORMAL) Comprehensive metabolic panel (03/01/2025 12:22 PM EDT) Sodium 139 133 - 145 mmol/L LAB CHEMISTRY METHOD 03/01/2025 4:53 PM EDT [facility] Potassium 3.8 3.5 - 5.5 mmol/L LAB CHEMISTRY METHOD 03/01/2025 4:53 PM EDT [facility] Chloride 110 96 - 110 mmol/L LAB CHEMISTRY METHOD 03/01/2025 4:53 PM EDT [facility] CO2 20(L) 21 - 32 mmol/L LAB CHEMISTRY METHOD 03/01/2025 4:53 PM [facility] Anion Gap 9 3 - 11 LAB CHEMISTRY METHOD 03/01/2025 4:53 PM [facility] Glucose 74 70 - 100 mg/dL LAB CHEMISTRY METHOD 03/01/2025 4:53 PM [facility] BUN 11 5 - 25 mg/dL LAB CHEMISTRY METHOD 03/01/2025 4:53 PM [facility] Creatinine 0.94 0.50 - 1.10 mg/dL LAB CHEMISTRY METHOD 03/01/2025 4:53 PM [facility] eGFR 71 >=60 mL/min/1. 73m2 LAB CHEMISTRY METHOD 03/01/2025 4:53 PM [facility] Comment:Calculation based on the Chronic Kidney Disease Epidemiology Collaboration (CKD-EPI) equation refit without adjustment for race. BUN/Creatinine Ratio 11.7 LAB CHEMISTRY METHOD 03/01/2025 4:53 PM [facility] Calcium 9.6 8.5 - 10.5 mg/dL LAB CHEMISTRY METHOD 03/01/2025 4:53 PM [facility] AST (SGOT) 8(L) 10 - 42 unit/L LAB CHEMISTRY METHOD 03/01/2025 4:53 PM [facility] ALT (SGPT) 26 10 - 60 unit/L LAB CHEMISTRY METHOD 03/01/2025 4:53 PM [facility] Alkaline Phosphatase 120 42 - 121 unit/L LAB CHEMISTRY METHOD 03/01/2025 4:53 PM [facility] Total Protein 7.5 6.0 - 8.0 g/dL LAB CHEMISTRY METHOD 03/01/2025 4:53 PM [facility] Albumin 3.7 3.2 - 5.0 g/dL LAB CHEMISTRY METHOD 03/01/2025 4:53 PM [facility] Total Bilirubin 0.4 0.0 - 1.4 mg/dL LAB CHEMISTRY METHOD 03/01/2025 4:53 PM EDT [facility] Blood Venous blood specimen / Unknown Venipuncture / Unknown 03/01/2025 12:22 PM EDT 03/01/2025 12:22 PM EDT Goldie Stark MD LAB BLOOD ORDERABLES Final Res ult [facility] [address] [place] [address], [place] [phone] * External Mammogram Report (12/17/2024) Anatomical Region Laterality Modality Mammography Provider [facility] IMG BI PROCEDURES Final Result * Lipid panel (05/06/2023) LDL/HDL [...] Insurance MEDICARE MEDICAID - [place] Care Teams Scientific Affairs Manager Relationship Specialty Start Date End Date Goldie Stark MD [address] [place] [address] [address] [place] [phone] PCP - General Internal Medicine 10/12/24
--- OUTSIDE RECORDS SUMMARY | 2025-06-29 16:26 | XMS_ITS | Encounter Summary ---
Author Organization [facility] [place] [address] [place] [address] Care Team Providers Care Inspector Hot Forgings Name Role Phone Unavailable Primary Care Provider Unavailabl e Encounter Details Date Type Department Care Team (Late st Contact Info) Description 12/08/2024 Dental Interim Note [facility] [address] [place] [phone] Jody Auguste DDS [address] [place] [address] [id number] Social History Tobacco Use Types Packs/Day Years [...] Description 07/04/2025 1:00 PM EDT Office Visit [facility] [address] [place] [phone] [employer], [address] [place], [place] [phone] documented as of this encounter Visit Diagnoses Not on filedocumented in this encounter
== END 2025-06-29 14:20 | disposition home or self-care (01) ==
LOC: HO.HSMS 13:55
PROVIDERS: PCP Internal Medicine; Visit Provider Psychiatry & Neurology Neurology
DX: R56.9 Unspecified convulsions (principal); G43.709 Chronic migraine without aura, not intractable, without status migrainosus; G47.33 Obstructive sleep apnea (adult) (pediatric)
CPT/HCPCS: 99214; G2211

== ENCOUNTER → 2025-06-29 13:55 | Outpatient (BNVA) | payer MEDICARE, MEDICAID, SELFPAY | PROVIDERS: PCP Internal Medicine; Visit Provider Psychiatry & Neurology Neurology | DX: R56.9 Unspecified convulsions (principal); G43.709 Chronic migraine without aura, not intractable, without status migrainosus; G47.33 Obstructive sleep apnea (adult) (pediatric); I10 Essential (primary) hypertension; Z87.891 Personal history of nicotine dependence | CPT/HCPCS: 99212 ==